=== PATIENT | male | born 1950 | race Hispanic/Latino ===

== ENCOUNTER 2016-11-14 11:24 | Inpatient (IN) | payer OTHER, MEDICARE ==
[2016-11-14 12:42] LABS: Anion Gap 17 mmol/L; Blood Urea Nitrogen 9 mg/dL (9-20); Calcium 9.3 mg/dL (8.4-10.2); Carbon Dioxide 28 mmol/L (22-30); Chloride 92.5 mmol/L (98-107); Glucose 99 mg/dL (75-100); Potassium 4.5 mmol/L (3.6-5.0); Sodium 133 mmol/L (137-145)
[2016-11-14 12:43] LABS: Eosinophils % (Auto) 7.5 % (0.0-4.3); Hematocrit 35.7 % (35.5-45.6); Mean Corpuscular HGB Conc 34 % (32-34); Mean Corpuscular Hemoglobin 34 pg (28-32); Mean Corpuscular Volume 101 fl (84-94); Platelet Count 111 K/mm3 (140-440); Red Blood Count 3.54 M/mm3 (3.65-5.03); White Blood Count 5.5 K/mm3 (4.5-11.0)
--- NOTE | 2016-11-14 12:46 | XRay Report ---
CHEST 2 VIEWS INDICATION: Shortness of breath. COMPARISON: 02/27/2013 FINDINGS: PA and lateral chest radiographs, 3 images, again demonstrate normal cardiomediastinal silhouette. Aortic knob calcifications. Clear, hyperexpanded lungs/COPD. No pleural effusions or CHF. Osteopenic bones. CONCLUSION: COPD without acute chest process, as described. Thank you for the opportunity to participate in this patient's care.
--- NOTE | 2016-11-14 20:33 | Emergency Department Report ---
HPI - General Chief Complaint: Dyspnea/Respdistress Time Seen by Provider: 11/14/16 20:22 - HPI HPI: Room 3 The patient is a 66-year-old male presenting with a chief complaint of shortness of breath. Patient states his symptoms began this morning at approximately 10:30 while at rest. Patient states someone came short of breath. Patient denies chest pain but admits to pain in the left axilla and back. The patient admits to chronic cough which has not changed recently patient denies any history of fever. Patient states currently as he is being administered O2 by nasal cannula his breathing feels okay. Location: Lungs Duration: [see above] Quality: Shortness of breath, soreness Severity: Moderate Modifying factors: [see above] Context: [see above] Mode of transportation: [not driving] ED Past Medical Hx - Past Medical History Hx Hypertension: Yes Hx Liver Disease: Yes (HEPATITIS C) Hx Psychiatric Treatment: Yes (ANXIETY) Hx Asthma: Yes Hx COPD: Yes Additional medical history: TREMORS - Surgical History Additional Surgical History: HERNIA REPAIR. COLON SURGERY - Family History Family history: no significant - Social History Smoking Status: Former Smoker (none 5 years) Substance Use Type: Alcohol ED Review of Systems ROS: Stated complaint: SOB Other details as noted in HPI Comment: All other systems reviewed and negative Constitutional: denies: chills, fever Eyes: denies: eye pain, eye discharge, vision change ENT: denies: ear pain, throat pain Respiratory: cough, shortness of breath Cardiovascular: denies: chest pain, palpitations Endocrine: no symptoms reported Gastrointestinal: denies: abdominal pain, nausea, diarrhea Genitourinary: denies: urgency, dysuria Musculoskeletal: denies: back pain, joint swelling, arthralgia Skin: denies: rash, lesions Neurological: denies: headache, weakness, paresthesias Psychiatric: denies: anxiety, depression Hematological/Lymphatic: denies: easy bleeding, easy bruising Physical Exam - Physical Exam Vital Signs: Vital Signs 11/14/16 11:32 Temperature 97.6 F Pulse Rate 73 Respiratory 22 Rate Blood Pressure 135/92 O2 Sat by Pulse 95 Oximetry Physical Exam: GENERAL: The patient is well-developed well-nourished male sitting on stretcher not appearing to be in acute distress. Nasal Cannula in place HEENT: Normocephalic. Atraumatic. Extraocular motions are intact. Patient has moist mucous membranes. NECK: Supple. Trachea midline CHEST/LUNGS: No wheezing auscultated. Breath sounds slightly diminished. There is no respiratory distress noted. HEART/CARDIOVASCULAR: Regular. There is no tachycardia. There is no gallop rub or murmur. ABDOMEN: Abdomen is soft, nontender. Patient has normal bowel sounds. There is no abdominal distention. SKIN: There is no edema. There is no diaphoresis. NEURO: The patient is awake, alert, and oriented. The patient is cooperative. The patient has normal speech MUSCULOSKELETAL: There is no evidence of acute injury. ED Course Vital Signs 11/14/16 11:32 Temperature 97.6 F Pulse Rate 73 Respiratory 22 Rate Blood Pressure 135/92 O2 Sat by Pulse 95 Oximetry ED Medical Decision Making - Lab Data Result diagrams: 11/14/16 12:12 11/14/16 12:12 Laboratory Tests 11/14/16 11/14/16 12:12 12:12 WBC 5.5 RBC 3.54 L Hgb 12.0 Hct 35.7 MCV 101 H MCH 34 H MCHC 34 RDW 14.0 Plt Count 111 L Lymph % (Auto) 17.5 [place] % (Auto) 15.5 H Eos % (Auto) 7.5 H Baso % (Auto) 1.0 Lymph # 1.0 L [place] # 0.9 H Eos # 0.4 Baso # 0.1 Seg Neutrophils % 58.5 Seg Neutrophils # 3.2 Sodium 133 L Potassium 4.5 Chloride 92.5 L Carbon Dioxide 28 Anion Gap 17 BUN 9 Creatinine 0.6 L Estimated GFR > 60 BUN/Creatinine Ratio 15.00 Glucose 99 Calcium 9.3 Troponin T < 0.010 - EKG Data -: EKG Interpreted by Me EKG shows normal: sinus rhythm Rate: normal - EKG Data When compared to previous EKG there are: no significant change Interpretation: unchanged when compared t (03/15/2011) - Radiology Data Radiology results: report reviewed (CT chest), image reviewed (chest x-ray, CT chest) interpreted by me: Chest x-ray-no focal infiltrates, no pneumothorax. Consistent with COPD CT chest (read by radiologist)-pulmonary emphysematous changes. No evidence for acute ulnar embolus - Differential Diagnosis COPD exacerbation, pneumonia, pneumothorax, PE, ACS Critical care attestation.: If time is entered above; I have spent that time in minutes in the direct care of this critically ill patient, excluding procedure time. ED Disposition Clinical Impression: Shortness of breath, Hypoxia, COPD (chronic obstructive pulmonary disease) Disposition: OP ADMITTED IP TO THIS HOSP Is pt being admited?: Yes Does the pt Need Aspirin: Yes Condition: Fair Instructions: Chronic Obstructive Pulmonary Disease (ED) Referrals: PRIMARY CARE, [Primary Care Provider] - 3-5 Days Time of Disposition: 23:14 (hospitalist paged)
[2016-11-14] MEDS ORDERED: NACL ONE (20:52)
--- NOTE | 2016-11-14 21:37 | Cat Scan Report ---
FINAL REPORT EXAM: CT ANGIO CHEST HISTORY: shortness of breath, left axillary pain TECHNIQUE: CT chest CT angiogram with reconstructions PRIORS: None. FINDINGS: There is no evidence of filling defect within the central pulmonary vasculature to suggest the presence of acute pulmonary embolus. No evidence of mediastinal pathologic lymph node enlargement Heart and great vessels are unremarkable. The aorta is normal in caliber Bilateral pulmonary centrilobular emphysematous changes are present There is focal area of rounded atelectasis noted within the right lower lobe. No pleural effusion identified.. Visualized portion of the upper abdomen demonstrates no acute change. IMPRESSION: Pulmonary emphysematous changes No evidence for acute pulmonary embolus.
[2016-11-14] MEDS ORDERED: PROVENTIL IH ONE (21:50)
[2016-11-14] MEDS ORDERED: ATROVENT IH ONE (21:50)
[2016-11-14 22:40] LABS: ISTAT Base Excess 3; ISTAT HCO3 25.6; ISTAT PCO2 28.4 (35-45); ISTAT PH 7.563 (7.35-7.45); ISTAT PO2 42 (80-105); ISTAT SITE 1; ISTAT SO2 85; ISTAT TCO2 26
[2016-11-14] MEDS ORDERED: ZOFRAN IV PRN (23:50)
[2016-11-14] MEDS ORDERED: TYLENOL PO PRN (23:50)
[2016-11-14] MEDS ORDERED: DULCOLAX PR PRN (23:50)
[2016-11-14] MEDS ORDERED: MILK OF MAGNESIA PO PRN (23:50)
--- NOTE | 2016-11-14 23:53 | History and Physical Report ---
History of Present Illness Date of examination: 11/14/16 History of present illness: 66-year-old man with a history of hypertension, COPD, anxiety, hepatitis C comes emergency room with complaints of shortness of breath started this morning. He has a cough productive of clear phlegm, no fever or chills. He has been using his nebulizer treatment without any improvement in his symptoms. Also complaining of pain on the left upper side in the thoracic area. He stated feels like a muscle strain, he has been doing heavy lifting over the last few days. It's a dull pain, intermittent in nature lasting for 5 minutes, intensity 4/10, no radiation, worse with movement Patient denies chest pain, palpitation, shortness of breath, cough, abdominal pain, hematochezia, dysuria, frequency, focal weakness, dysarthria, fever chills , polydipsia polyuria, hot or cold intolerance, easy bruisability, or rash or bleeding from mucosal membrane, rhinorrhea, epistaxis, earache, tinnitus, blurry vision, eye discharge, anxiety, depression. Other review of systems negative PAST SURGICAL HISTORY: Hernia repair, colon surgery SOCIAL HISTORY: Occasional alcohol, no tobacco or drugs FAMILY HISTORY: Hypertension Medications and Allergies Allergies Allergy/AdvReac Type Severity Reaction Status Date / Time Penicillins AdvReac Hives Verified 11/14/16 11:42 Home Medications Medication Instructions Recorded Confirmed Last Taken Type ALBUTEROL Inhaler [Proair] 2 puff IH QID PRN 11/15/16 11/15/16 Unknown History Cetirizine HCl 10 mg PO DAILY 11/15/16 11/15/16 Unknown History Paroxetine HCl [PARoxetine] 20 mg PO QDAY 11/15/16 11/15/16 Unknown History Propranolol HCl 20 mg PO BID 11/15/16 11/15/16 Unknown History Simethicone [Gas-X] 1 PO 4XD 11/15/16 Unknown History Symbicort 160-4.5 (Nf) INHALATION 11/15/16 Unknown History Tiotropium [place] [Spiriva 4 gm IH 11/15/16 Unknown History Respimat] guaiFENesin [Tab Tussin] 400 mg PO Q8HR PRN 11/15/16 11/15/16 Unknown History Exam - Physical Exam Narrative exam: Gen. appearance: Patient lying in bed, no apparent distress HEENT: Normocephalic, atraumatic, pupils equally round and reactive to light, extraocular movement intact, and no sclericterus,. No JVD or thyromegaly or nodule,neck supple, no carotid bruit ,mucous membranes moist, no exudate or erythema Heart: S1, S2, regular rate and rhythm Lungs: Decreased air entry, wheezing bilaterally, breathing comfortable Abdomen: Positive bowel sounds, nontender, nondistended, no organomegaly Extremity: No edema, cyanosis, clubbing Skin: No rash, nodules, warm, dry Neuro: Oriented 3, cranial nerves II-12 intact, speech is fluent, motor and sensory intact - Constitutional Vitals: Temp Pulse Resp BP Pulse Ox 98.2 F 78 19 153/72 98 11/14/16 20:30 11/14/16 20:30 11/14/16 20:30 11/14/16 20:30 11/14/16 21:32 Results - Labs CBC & Chem 7: 11/16/16 05:15 11/16/16 05:15 Labs: Abnormal lab results 11/14/16 11/14/16 11/14/16 Range/Units 12:12 12:12 22:37 RBC 3.54 L (3.65-5.03) M/mm3 MCV 101 H (84-94) fl MCH 34 H (28-32) pg Plt Count 111 L (140-440) K/mm3 [place] % (Auto) 15.5 H (0.0-7.3) % Eos % (Auto) 7.5 H (0.0-4.3) % Lymph # 1.0 L (1.2-5.4) K/mm3 [place] # 0.9 H (0.0-0.8) K/mm3 POC ABG pH 7.563 H (7.35-7.45) POC ABG pCO2 28.4 L (35-45) POC ABG pO2 42 L (80-105) Sodium 133 L (137-145) mmol/L Chloride 92.5 L (98-107) mmol/L Creatinine 0.6 L (0.8-1.5) mg/dL - Imaging and Cardiology EKG: image reviewed Chest x-ray: image reviewed Assessment and Plan COPD exacerbation Hypertension Hep C Anxiety Thrombocytopenia Admits medicine Start high-dose IV steroids, nebulizer treatments Continue appropriate outpatient medication, DVT prophylaxis with SCD Check cardiac enzymes
[2016-11-15 00:45] LABS: Creatine Kinase MB 3.2 ng/mL (0.0-4.0)
[2016-11-15 06:00] LABS: Basophils % (Auto) 0.3 % (0.0-1.8); Eosinophils % (Auto) 0.4 % (0.0-4.3); Hematocrit 34.8 % (35.5-45.6); Hemoglobin 11.7 gm/dl (11.8-15.2); Mean Corpuscular HGB Conc 34 % (32-34); Mean Corpuscular Hemoglobin 34 pg (28-32); Mean Corpuscular Volume 100 fl (84-94); Red Blood Count 3.48 M/mm3 (3.65-5.03); Red Cell Distribution Width 13.9 % (13.2-15.2); White Blood Count 2.9 K/mm3 (4.5-11.0)
[2016-11-15 06:05] LABS: Platelet Count 89 K/mm3 (140-440)
[2016-11-15 06:23] LABS: Anion Gap 19 mmol/L; BUN/Creatinine Ratio 12.85; Blood Urea Nitrogen 9 mg/dL (9-20); Calcium 9.2 mg/dL (8.4-10.2); Carbon Dioxide 26 mmol/L (22-30); Chloride 93.9 mmol/L (98-107); Glucose 154 mg/dL (75-100); Potassium 4.2 mmol/L (3.6-5.0); Sodium 135 mmol/L (137-145)
[2016-11-15 06:25] LABS: Creatine Kinase MB 3.4 ng/mL (0.0-4.0)
--- NOTE | 2016-11-15 07:15 | Admit Criteria Form ---
Admission Criteria Documentation: COPD Clinical Indications for Admission to Inpatient Care (Place 'X' for any and all applicable criteria): Admission is indicated for ANY ONE of the following (1)(2)(3): [ ]I. Acute exacerbation by high-risk comorbidity (e.g., pneumonia, dysrhythmia, heart failure, pleural effusion, pneumothorax) or severe underlying COPD (e.g., steroid dependent) [ X]II. Inpatient admission required rather than observation care (see Chronic Obstructive Pulmonary Disease: Observation Care) because of ANY ONE of the following: [X]a) New or pre-existing signs or symptoms of COPD (eg, dyspnea or Tachypnea at rest or with minimal activity) that persist despite outpatient and observation care treatment [ ]b) New-onset hypoxemia (room air SaO2 less than 90%, PO2 less than 60 mm Hg (8.0 kPa)) that persists despite outpatient and observation care treatment [ ]c) Worsening of pre-existing hypoxemia (eg, new or increased requirement for supplemental oxygen to maintain oxygenation at baseline level) that persists despite outpatient and observation care treatment, with oxygen treatment needs performable only in acute inpatient setting [ ]d) Hypercarbia (PCO2 greater than 40 mm Hg (5.3 kPa))-induced respiratory acidosis (pH less than 7.35) that persists despite outpatient and observation care treatment [ ]e) Supplemental oxygen or respiratory treatments for over 24 hours that are performable only in acute inpatient setting [ ]f) Chest tube placement with active evacuation (e.g., suction, drainage) (5) [ ]g) Other condition, treatment or monitoring requiring inpatient admission [ ]III. Planned invasive surgical or diagnostic procedures requiring acute- care hospitalization [ ]IV. Acute respiratory failure (e.g., uncompensated hypercarbia, severe hypoxemia) [ ]V. Severe comorbid condition (e.g., severe steroid myopathy, acute vertebral fracture) that has acutely worsened pulmonary function [ ]. Confusion state, lethargy, obtundation, stupor or coma Extended stay beyond goal length of stay may be needed for (31)(32): [ ]a ) Respiratory Failure. [ ]b) Severe or persisting hypoxemia or hypercarbia [ ]c) Severe or persistent dyspnea [ ]d) Comorbidities (e.g. chronic heart failure, atrial fibrillation with rapid response, pneumonia) [ ]e) Malnutrition The original [facility] content created by [employer] includes the [facility] has been revised. The portions of the content which have been revised are identified through the use of italic text or in bold, and [employer] includes the [facility] has neither reviewed nor approved the modified material. All other unmodified content is copyright [facility]. Please see references footnoted in the original [facility] edition 2016 Admission Criteria Met: Yes
[2016-11-15] MEDS: DUONEB 0.5 MG-3 MG/3 ML SOLN IH SCH ×4 (07:27→20:32)
[2016-11-15] MEDS ORDERED: LOVENOX SUB-Q SCH (10:00)
[2016-11-15] MEDS: PULMICORT IH SCH ×2 (10:54→20:14)
[2016-11-15] MEDS: BROVANA NEBU IH SCH ×2 (10:54→20:14)
[2016-11-15] MEDS: ZITHROMAX PO SCH (15:14)
--- NOTE | 2016-11-15 19:20 | Progress Note ---
History Interval history: c/o SOB Hospitalist Physical - Constitutional Vitals: Temp Pulse Resp BP Pulse Ox 98 F 78 18 142/63 99 11/15/16 15:35 11/15/16 15:35 11/15/16 15:35 11/15/16 15:35 11/15/16 07:32 Results - Labs CBC & Chem 7: 11/15/16 05:38 11/15/16 05:38 Labs: Laboratory Last Values WBC 2.9 K/mm3 (4.5-11.0) L 11/15/16 05:38 RBC 3.48 M/mm3 (3.65-5.03) L 11/15/16 05:38 Hgb 11.7 gm/dl (11.8-15.2) L 11/15/16 05:38 Hct 34.8 % (35.5-45.6) L 11/15/16 05:38 MCV 100 fl (84-94) H 11/15/16 05:38 MCH 34 pg (28-32) H 11/15/16 05:38 MCHC 34 % (32-34) 11/15/16 05:38 RDW 13.9 % (13.2-15.2) 11/15/16 05:38 Plt Count 89 K/mm3 (140-440) L 11/15/16 05:38 Lymph % (Auto) 11.5 % (13.4-35.0) L 11/15/16 05:38 [place] % (Auto) 2.5 % (0.0-7.3) 11/15/16 05:38 Eos % (Auto) 0.4 % (0.0-4.3) 11/15/16 05:38 Baso % (Auto) 0.3 % (0.0-1.8) 11/15/16 05:38 Lymph # 0.3 K/mm3 (1.2-5.4) L 11/15/16 05:38 [place] # 0.1 K/mm3 (0.0-0.8) 11/15/16 05:38 Eos # 0.0 K/mm3 (0.0-0.4) 11/15/16 05:38 Baso # 0.0 K/mm3 (0.0-0.1) 11/15/16 05:38 Seg Neutrophils % 85.3 % (40.0-70.0) H 11/15/16 05:38 Seg Neutrophils # 2.5 K/mm3 (1.8-7.7) 11/15/16 05:38 POC ABG pH 7.563 (7.35-7.45) H 11/14/16 22:37 POC ABG pCO2 28.4 (35-45) L 11/14/16 22:37 POC ABG pO2 42 (80-105) L 11/14/16 22:37 POC ABG HCO3 25.6 11/14/16 22:37 POC ABG Total CO2 26 11/14/16 22:37 POC ABG O2 Sat 85 11/14/16 22:37 POC ABG Base Excess 3 11/14/16 22:37 FiO2 21 % 11/14/16 22:37 Sodium 135 mmol/L (137-145) L 11/15/16 05:38 Potassium 4.2 mmol/L (3.6-5.0) 11/15/16 05:38 Chloride 93.9 mmol/L (98-107) L 11/15/16 05:38 Carbon Dioxide 26 mmol/L (22-30) 11/15/16 05:38 Anion Gap 19 mmol/L 11/15/16 05:38 BUN 9 mg/dL (9-20) 11/15/16 05:38 Creatinine 0.7 mg/dL (0.8-1.5) L 11/15/16 05:38 Estimated GFR > 60 ml/min 11/15/16 05:38 BUN/Creatinine Ratio 12.85 % 11/15/16 05:38 Glucose 154 mg/dL (75-100) H 11/15/16 05:38 Calcium 9.2 mg/dL (8.4-10.2) 11/15/16 05:38 Total Creatine Kinase 73 units/L (55-170) 11/15/16 05:38 CK-MB (CK-2) 3.4 ng/mL (0.0-4.0) 11/15/16 05:38 CK-MB (CK-2) Rel Index 4.6 (0-4) H 11/15/16 05:38 Troponin T < 0.010 ng/mL (0.00-0.029) 11/15/16 05:38
[2016-11-15] MEDS: PERCOCET 5/325 PO PRN (23:25)
[2016-11-16] MEDS: DUONEB 0.5 MG-3 MG/3 ML SOLN IH SCH ×4 (01:39→19:24)
[2016-11-16 05:30] LABS: Hematocrit 35.6 % (35.5-45.6); Hemoglobin 11.9 gm/dl (11.8-15.2); Mean Corpuscular HGB Conc 34 % (32-34); Mean Corpuscular Hemoglobin 34 pg (28-32); Mean Corpuscular Volume 101 fl (84-94); Platelet Count 102 K/mm3 (140-440); Red Blood Count 3.53 M/mm3 (3.65-5.03); Red Cell Distribution Width 14.1 % (13.2-15.2); White Blood Count 8.8 K/mm3 (4.5-11.0)
[2016-11-16 05:51] LABS: Alanine Aminotransferase 40 units/L (7-56); Albumin 3.2 g/dL (3.9-5); Albumin/Globulin Ratio 0.9 %; Alkaline Phosphatase 113 units/L (35-129); Anion Gap 14 mmol/L; BUN/Creatinine Ratio 21.42; Bilirubin,Total 0.8 mg/dL (0.1-1.2); Blood Urea Nitrogen 15 mg/dL (9-20); Calcium 8.8 mg/dL (8.4-10.2); Carbon Dioxide 27 mmol/L (22-30); Glucose 163 mg/dL (75-100); Potassium 4.3 mmol/L (3.6-5.0); Sodium 133 mmol/L (137-145); Total Protein 6.8 g/dL (6.3-8.2)
[2016-11-16 06:04] LABS: INR 1.34 (0.87-1.13)
[2016-11-16 07:05] LABS: Basophils % (Manual) 0 % (0.0-1.8); Blastocytes % (Manual) 0 %; Eosinophils % (Manual) 0 % (0.0-4.3)
[2016-11-16 07:06] LABS: Anisocytosis 1+; Ovalocytes Few; Target Cells Rare
[2016-11-16 07:17] LABS: Diff Status Complete; Platelet Estimate Consistent w Auto
[2016-11-16] MEDS: BROVANA NEBU IH SCH ×2 (08:30→19:24)
[2016-11-16] MEDS: PULMICORT IH SCH ×2 (08:30→19:25)
[2016-11-16] MEDS: ZITHROMAX PO SCH (09:35)
--- NOTE | 2016-11-16 09:56 | Query- Dyspnea ---
C[place] Date:_11/16/16 Creative Perfumer/CDS:Mariano Lucero Phone#:_[phone] Exercise your independent professional judgment when responding to query. Questions asked do not imply a particular answer is desired or expected. We greatly appreciate your clarification on this issue. Clinical Documentation States: 66-year-old man with a history of hypertension, COPD, anxiety, hepatitis C comes emergency room with complaints of shortness of breath started this morning. He has a cough productive of clear phlegm, no fever or chills. He has been using his nebulizer treatment without any improvement in his symptoms. Clinical Findings Show: ABG: PH:7.563, PaO2:42, PaCO2:28.4, SaO2:85 RR:22 Accessory muscle use Please clarify if the patient had any of the following conditions based on the above clinical findings: [x ] Respiratory Failure [x ] Acute [ ] Acute on Chronic [ ] Chronic [ ] Respiratory failure due to trauma [ ] Acute Respiratory Distress Syndrome [ ] Other: [ ] Unable to determine [ ] Comment/Explanation: Present on Admission: [x ] Yes (Y) [ ] Clinically undeterminable (W) [ ] No (N) Please also document response in your Progress Notes and/or Discharge Summary and indicate if the condition was present on admission. SAHARA
--- NOTE | 2016-11-16 20:15 | Progress Note ---
Assessment and Plan Assessment and plan: 1. COPD exacerbation 2. HTN 3. Hepatitis C 4. Thrombocytopenia 5. Hyperglycemia 6. Hyponatremia History Interval history: SOB improved, but still requiring O2 continuous Hospitalist Physical - Constitutional Vitals: Temp Pulse Resp BP Pulse Ox 98.1 F 84 18 125/73 98 11/16/16 16:30 11/16/16 19:26 11/16/16 19:26 11/16/16 16:30 11/16/16 19:26 Results - Labs CBC & Chem 7: 11/16/16 05:15 11/16/16 05:15 Labs: Laboratory Last Values WBC 8.8 K/mm3 (4.5-11.0) 11/16/16 05:15 RBC 3.53 M/mm3 (3.65-5.03) L 11/16/16 05:15 Hgb 11.9 gm/dl (11.8-15.2) 11/16/16 05:15 Hct 35.6 % (35.5-45.6) 11/16/16 05:15 MCV 101 fl (84-94) H 11/16/16 05:15 MCH 34 pg (28-32) H 11/16/16 05:15 MCHC 34 % (32-34) 11/16/16 05:15 RDW 14.1 % (13.2-15.2) 11/16/16 05:15 Plt Count 102 K/mm3 (140-440) L 11/16/16 05:15 Lymph % (Auto) 11.5 % (13.4-35.0) L 11/15/16 05:38 [place] % (Auto) 2.5 % (0.0-7.3) 11/15/16 05:38 Eos % (Auto) 0.4 % (0.0-4.3) 11/15/16 05:38 Baso % (Auto) 0.3 % (0.0-1.8) 11/15/16 05:38 Lymph # 0.3 K/mm3 (1.2-5.4) L 11/15/16 05:38 [place] # 0.1 K/mm3 (0.0-0.8) 11/15/16 05:38 Eos # 0.0 K/mm3 (0.0-0.4) 11/15/16 05:38 Baso # 0.0 K/mm3 (0.0-0.1) 11/15/16 05:38 Add Manual Diff Complete 11/16/16 05:15 Total Counted 100 11/16/16 05:15 Seg Neutrophils % Neonatal Surgeon 11/16/16 05:15 Seg Neuts % (Manual) 87.0 % (40.0-70.0) H 11/16/16 05:15 Band Neutrophils % 5.0 % 11/16/16 05:15 Lymphocytes % (Manual) 7.0 % (13.4-35.0) L 11/16/16 05:15 Reactive Lymphs % (Man) 0 % 11/16/16 05:15 Monocytes % (Manual) 1.0 % (0.0-7.3) 11/16/16 05:15 Eosinophils % (Manual) 0 % (0.0-4.3) 11/16/16 05:15 Basophils % (Manual) 0 % (0.0-1.8) 11/16/16 05:15 Metamyelocytes % 0 % 11/16/16 05:15 Myelocytes % 0 % 11/16/16 05:15 Promyelocytes % 0 % 11/16/16 05:15 Blast Cells % 0 % 11/16/16 05:15 Nucleated RBC % Not Reportable 11/16/16 05:15 Seg Neutrophils # 2.5 K/mm3 (1.8-7.7) 11/15/16 05:38 Seg Neutrophils # Man 7.7 K/mm3 (1.8-7.7) 11/16/16 05:15 Band Neutrophils # 0.4 K/mm3 11/16/16 05:15 Lymphocytes # (Manual) 0.6 K/mm3 (1.2-5.4) L 11/16/16 05:15 Abs React Lymphs (Man) 0.0 K/mm3 11/16/16 05:15 Monocytes # (Manual) 0.1 K/mm3 (0.0-0.8) 11/16/16 05:15 Eosinophils # (Manual) 0.0 K/mm3 (0.0-0.4) 11/16/16 05:15 Basophils # (Manual) 0.0 K/mm3 (0.0-0.1) 11/16/16 05:15 Metamyelocytes # 0.0 K/mm3 11/16/16 05:15 Myelocytes # 0.0 K/mm3 11/16/16 05:15 Promyelocytes # 0.0 K/mm3 11/16/16 05:15 Blast Cells # 0.0 K/mm3 11/16/16 05:15 WBC Morphology Not Reportable 11/16/16 05:15 Hypersegmented Neuts Not Reportable 11/16/16 05:15 Hyposegmented Neuts Not Reportable 11/16/16 05:15 Hypogranular Neuts Not Reportable 11/16/16 05:15 Smudge Cells Not Reportable 11/16/16 05:15 Toxic Granulation Not Reportable 11/16/16 05:15 Toxic Vacuolation Not Reportable 11/16/16 05:15 Dohle Bodies Not Reportable 11/16/16 05:15 Pel[place]-Huet Anomaly Not Reportable 11/16/16 05:15 Alysa Rods Not Reportable 11/16/16 05:15 Platelet Estimate Consistent w auto 11/16/16 05:15 Clumped Platelets Not Reportable 11/16/16 05:15 Plt Clumps, EDTA Not Reportable 11/16/16 05:15 Large Platelets Not Reportable 11/16/16 05:15 Giant Platelets Not Reportable 11/16/16 05:15 Platelet Satelliting Not Reportable 11/16/16 05:15 Plt Morphology Comment Not Reportable 11/16/16 05:15 RBC Morphology Not Reportable 11/16/16 05:15 Dimorphic RBCs Not Reportable 11/16/16 05:15 Polychromasia Not Reportable 11/16/16 05:15 Hypochromasia Not Reportable 11/16/16 05:15 Poikilocytosis Not Reportable 11/16/16 05:15 Anisocytosis 1+ 11/16/16 05:15 Microcytosis Not Reportable 11/16/16 05:15 Macrocytosis Not Reportable 11/16/16 05:15 Spherocytes Not Reportable 11/16/16 05:15 Pappenheimer Bodies Not Reportable 11/16/16 05:15 Sickle Cells Not Reportable 11/16/16 05:15 Target Cells Rare 11/16/16 05:15 Tear Drop Cells Not Reportable 11/16/16 05:15 Ovalocytes Few 11/16/16 05:15 Helmet Cells Not Reportable 11/16/16 05:15 [place] Bodies Not Reportable 11/16/16 05:15 [place] Rings Not Reportable 11/16/16 05:15 [place] Cells Not Reportable 11/16/16 05:15 Bite Cells Not Reportable 11/16/16 05:15 Crenated Cell Not Reportable 11/16/16 05:15 Elliptocytes Not Reportable 11/16/16 05:15 Acanthocytes (Spur) Not Reportable 11/16/16 05:15 Rouleaux Not Reportable 11/16/16 05:15 Hemoglobin C Crystals Not Reportable 11/16/16 05:15 Schistocytes Not Reportable 11/16/16 05:15 Malaria parasites Not Reportable 11/16/16 05:15 Reji Bodies Not Reportable 11/16/16 05:15 Hem Pathologist Commnt No 11/16/16 05:15 PT 16.5 Sec. (12.2-14.9) H 11/16/16 05:15 INR 1.34 (0.87-1.13) H 11/16/16 05:15 POC ABG pH 7.563 (7.35-7.45) H 11/14/16 22:37 POC ABG pCO2 28.4 (35-45) L 11/14/16 22:37 POC ABG pO2 42 (80-105) L 11/14/16 22:37 POC ABG HCO3 25.6 11/14/16 22:37 POC ABG Total CO2 26 11/14/16 22:37 POC ABG O2 Sat 85 11/14/16 22:37 POC ABG Base Excess 3 11/14/16 22:37 FiO2 21 % 11/14/16 22:37 Sodium 133 mmol/L (137-145) L 11/16/16 05:15 Potassium 4.3 mmol/L (3.6-5.0) 11/16/16 05:15 Chloride 96.0 mmol/L (98-107) L 11/16/16 05:15 Carbon Dioxide 27 mmol/L (22-30) 11/16/16 05:15 Anion Gap 14 mmol/L 11/16/16 05:15 BUN 15 mg/dL (9-20) 11/16/16 05:15 Creatinine 0.7 mg/dL (0.8-1.5) L 11/16/16 05:15 Estimated GFR > 60 ml/min 11/16/16 05:15 BUN/Creatinine Ratio 21.42 % 11/16/16 05:15 Glucose 163 mg/dL (75-100) H 11/16/16 05:15 Calcium 8.8 mg/dL (8.4-10.2) 11/16/16 05:15 Total Bilirubin 0.8 mg/dL (0.1-1.2) 11/16/16 05:15 AST 52 units/L (5-40) H 11/16/16 05:15 ALT 40 units/L (7-56) 11/16/16 05:15 Alkaline Phosphatase 113 units/L (35-129) 11/16/16 05:15 Total Creatine Kinase 73 units/L (55-170) 11/15/16 05:38 CK-MB (CK-2) 3.4 ng/mL (0.0-4.0) 11/15/16 05:38 CK-MB (CK-2) Rel Index 4.6 (0-4) H 11/15/16 05:38 Troponin T < 0.010 ng/mL (0.00-0.029) 11/15/16 05:38 Total Protein 6.8 g/dL (6.3-8.2) 11/16/16 05:15 Albumin 3.2 g/dL (3.9-5) L 11/16/16 05:15 Albumin/Globulin Ratio 0.9 % 11/16/16 05:15
[2016-11-17] MEDS: PERCOCET 5/325 PO PRN (00:05)
[2016-11-17] MEDS: BROVANA NEBU IH SCH (08:01)
[2016-11-17] MEDS: PULMICORT IH SCH (08:01)
[2016-11-17] MEDS: DUONEB 0.5 MG-3 MG/3 ML SOLN IH SCH ×2 (08:02→14:34)
[2016-11-17] MEDS: ZITHROMAX PO SCH (09:26)
[2016-11-17] MEDS ORDERED: DELTASONE PO SCH (10:00)
--- NOTE | 2016-11-17 13:44 | Discharge Summary ---
Providers - Providers Date of Admission: 11/14/16 23:50 Date of discharge: 11/17/16 Attending physician: MAYURI MELGAR Primary care physician: PAYROLL LEAD Hospitalization Reason for admission: SOB Condition: Stable Disposition: DISCHARGED TO HOME OR SELFCARE Time spent for discharge: 35 min Core Measure Documentation - Palliative Care Palliative Care/ Comfort Measures: Not Applicable - Core Measures Any of the following diagnoses?: none Exam - Constitutional Vitals: Temp Pulse Resp BP Pulse Ox 97.9 F 87 18 141/67 97 11/17/16 08:00 11/17/16 08:17 11/17/16 08:17 11/17/16 08:00 11/17/16 10:00 Plan Activity: advance as tolerated Diet: low cholesterol, low salt Follow up with: PRIMARY CARE,MD [Primary Care Provider] - 3-5 Days Prescriptions: ALBUTEROL Inhaler [ProAir HFA Inhaler] 2 puff IH QID PRN #1 inha PRN Reason: Shortness Of Breath Azithromycin [Zithromax TAB] 500 mg PO QDAY #2 tablet oxyCODONE /ACETAMINOPHEN [Percocet 5/325 mg] 1 tab PO Q6H PRN #12 tablet PRN Reason: Pain, Moderate (4-6) predniSONE [Deltasone] 40 mg PO QDAY #10 tablet Symbicort 160-4.5 (Nf) 1 inhalation INHALATION 2XWHS #1 Tiotropium [place] [Spiriva Respimat] 4 gm IH DAILY #1 mist.inhal
[2016-11-17 15:39] VITALS: BP 157/79
== END 2016-11-17 16:37 | disposition home or self-care (01) | DRG 189 ==
LOC: ED 11:24 → 3A 23:50
PROVIDERS: ADMIT Internal Medicine; ATTEND Internal Medicine
PROC: 4A033R1 Measurement of Arterial Saturation, Peripheral, Percutaneous Approach (ICD-10-PCS; principal; 2016-11-14)
DX: J96.00 Acute respiratory failure, unspecified whether with hypoxia or hypercapnia (principal); J44.1 Chronic obstructive pulmonary disease with (acute) exacerbation; E87.1 Hypo-osmolality and hyponatremia; J45.909 Unspecified asthma, uncomplicated; I10 Essential (primary) hypertension; B19.20 Unspecified viral hepatitis C without hepatic coma; F41.9 Anxiety disorder, unspecified; R73.9 Hyperglycemia, unspecified; D69.6 Thrombocytopenia, unspecified; Z98.890 Other specified postprocedural states; Z88.0 Allergy status to penicillin; Z79.899 Other long term (current) drug therapy; Z82.49 Family history of ischemic heart disease and other diseases of the circulatory system
CPT/HCPCS: 36415; 71020; 71275; 80048; 80053; 82550; 82553; 82803; 84484; 85007; 85025; 85610; 93005; 93010; 94640; 94760; J2920; J2930; J7512; Q9967

== ENCOUNTER 2016-12-01 16:34 | Emergency (ER) | payer OTHER, MEDICARE ==
[2016-12-01 18:52] LABS: Anion Gap 18 mmol/L; BUN/Creatinine Ratio 16.66; Blood Urea Nitrogen 10 mg/dL (9-20); Carbon Dioxide 26 mmol/L (22-30); Chloride 95.9 mmol/L (98-107); Glucose 115 mg/dL (75-100); Sodium 136 mmol/L (137-145)
[2016-12-01 19:05] LABS: Basophils % (Auto) 1.6 % (0.0-1.8); Eosinophils % (Auto) 4.3 % (0.0-4.3); Hematocrit 36.4 % (35.5-45.6); Mean Corpuscular HGB Conc 33 % (32-34); Mean Corpuscular Hemoglobin 33 pg (28-32); Mean Corpuscular Volume 100 fl (84-94); Red Blood Count 3.64 M/mm3 (3.65-5.03); Red Cell Distribution Width 14.6 % (13.2-15.2); White Blood Count 5.6 K/mm3 (4.5-11.0)
[2016-12-01 19:19] LABS: Platelet Count 89 K/mm3 (140-440)
[2016-12-01] MEDS ORDERED: PROVENTIL IH ONE (22:44)
[2016-12-01] MEDS ORDERED: NACL 0.9% 1000 ML 1,000 ML IV ONE (22:44)
[2016-12-01] MEDS ORDERED: ATROVENT IH ONE (22:44)
--- NOTE | 2016-12-01 22:45 | Emergency Department Report ---
ED General Adult HPI - General Chief complaint: Dyspnea/Respdistress Stated complaint: SOB Time Seen by Provider: 12/01/16 22:37 Source: patient, RN notes reviewed, old records reviewed Mode of arrival: Ambulatory Limitations: No Limitations - History of Present Illness Initial comments: This is a 66-year-old male. He is previously unknown to me. Has a past medical history of hypertension, COPD, hepatitis C, anxiety. He is home oxygen dependent. The patient is recently admitted to this hospital for COPD exacerbation on the week of 11/14/2016. He was discharged with home oxygen. He reports that after being home for a few days, accompanied that supplied his home oxygen took his home oxygen machine away. He does not have home oxygen currently. He went to an outpatient [facility] yesterday, and was referred to the ER. The patient reports chronic shortness of breath and cough, decreased exercise tolerance, which is consistent with chronic COPD. His symptoms decreased with with rest, increase with physical exertion. He has no pain, he has chronic cough, chronic mucus production. His primary complaint is not having oxygen at home. -: Gradual Consistency: intermittent Improves with: rest Worsens with: movement Associated Symptoms: cough, shortness of breath - Related Data Home Medications Medication Instructions Recorded Confirmed Last Taken Cetirizine HCl 10 mg PO DAILY 11/15/16 11/15/16 Unknown Paroxetine HCl [PARoxetine] 20 mg PO QDAY 11/15/16 11/15/16 Unknown Propranolol HCl 20 mg PO BID 11/15/16 11/15/16 Unknown Simethicone [Gas-X] 1 PO 4XD 11/15/16 Unknown guaiFENesin [Tab Tussin] 400 mg PO Q8HR PRN 11/15/16 11/15/16 Unknown Previous Rx's Medication Instructions Recorded Last Taken Type ALBUTEROL Inhaler [ProAir HFA 2 puff IH QID PRN #1 inha 11/17/16 Unknown Rx Inhaler] Azithromycin [Zithromax TAB] 500 mg PO QDAY #2 tablet 11/17/16 Unknown Rx Symbicort 160-4.5 (Nf) 1 inhalation INHALATION 2XWHS #1 11/17/16 Unknown Rx Tiotropium [place] [Spiriva 4 gm IH DAILY #1 mist.inhal 11/17/16 Unknown Rx Respimat] oxyCODONE /ACETAMINOPHEN [Percocet 1 tab PO Q6H PRN #12 tablet 11/17/16 Unknown Rx 5/325 mg] predniSONE [Deltasone] 40 mg PO QDAY #10 tablet 11/17/16 Unknown Rx Allergies Allergy/AdvReac Type Severity Reaction Status Date / Time Penicillins AdvReac Hives Verified 12/01/16 17:11 ED Review of Systems ROS: Stated complaint: SOB Other details as noted in HPI Constitutional: denies: fever ENT: denies: epistaxis Respiratory: shortness of breath Cardiovascular: dyspnea on exertion Gastrointestinal: denies: abdominal pain Genitourinary: denies: urgency, dysuria Musculoskeletal: denies: back pain Skin: denies: lesions Neurological: denies: weakness Psychiatric: denies: anxiety ED Past Medical Hx - Past Medical History Previous Medical History?: Yes Hx Hypertension: Yes Hx Liver Disease: Yes (HEPATITIS C) Hx Arthritis: Yes Hx Psychiatric Treatment: Yes (ANXIETY) Hx Asthma: Yes Hx COPD: Yes Additional medical history: TREMORS. Emphysema - Surgical History Past Surgical History?: Yes Additional Surgical History: HERNIA REPAIR. COLON SURGERY - Social History Smoking Status: Former Smoker Substance Use Type: None - Medications Home Medications: Home Medications Medication Instructions Recorded Confirmed Last Taken Type Cetirizine HCl 10 mg PO DAILY 11/15/16 11/15/16 Unknown History Paroxetine HCl [PARoxetine] 20 mg PO QDAY 11/15/16 11/15/16 Unknown History Propranolol HCl 20 mg PO BID 11/15/16 11/15/16 Unknown History Simethicone [Gas-X] 1 PO 4XD 11/15/16 Unknown History guaiFENesin [Tab Tussin] 400 mg PO Q8HR PRN 11/15/16 11/15/16 Unknown History ALBUTEROL Inhaler [ProAir HFA 2 puff IH QID PRN #1 inha 11/17/16 Unknown Rx Inhaler] Azithromycin [Zithromax TAB] 500 mg PO QDAY #2 tablet 11/17/16 Unknown Rx Symbicort 160-4.5 (Nf) 1 inhalation INHALATION 2XWHS #1 11/17/16 Unknown Rx Tiotropium [place] [Spiriva 4 gm IH DAILY #1 mist.inhal 11/17/16 Unknown Rx Respimat] oxyCODONE /ACETAMINOPHEN [Percocet 1 tab PO Q6H PRN #12 tablet 11/17/16 Unknown Rx 5/325 mg] predniSONE [Deltasone] 40 mg PO QDAY #10 tablet 11/17/16 Unknown Rx ED Physical Exam - General Limitations: No Limitations General appearance: alert, in no apparent distress - Head Head exam: Present: atraumatic, normocephalic - Eye Eye exam: Present: normal appearance, EOMI. Absent: nystagmus - ENT ENT exam: Present: normal exam, normal orophraynx, mucous membranes moist, normal external ear exam - Neck Neck exam: Present: normal inspection, full ROM. Absent: tenderness, meningismus - Respiratory Respiratory exam: Present: decreased breath sounds. Absent: respiratory distress, wheezes, rales - Cardiovascular Cardiovascular Exam: Present: normal rhythm, tachycardia, normal heart sounds. Absent: systolic murmur, diastolic murmur, rubs, gallop - GI/Abdominal GI/Abdominal exam: Present: soft, normal bowel sounds. Absent: distended, tenderness, guarding, rebound, rigid - Rectal Rectal exam: Present: deferred - Extremities Exam Extremities exam: Present: normal inspection, full ROM, normal capillary refill. Absent: tenderness, pedal edema, joint swelling, calf tenderness - Back Exam Back exam: Present: normal inspection, full ROM. Absent: tenderness, CVA tenderness (R), CVA tenderness (L), muscle spasm, paraspinal tenderness, vertebral tenderness - Neurological Exam Neurological exam: Present: alert, oriented X3, other (Extraocular movements intact. Tongue midline. No facial droop. Facial sensation intact to light touch in the V1, V2, V3 distribution bilaterally. 5 and 5 strength in 4 extremities.. Sensation is intact to light touch in 4 extremities.). Absent: motor sensory deficit - Psychiatric Psychiatric exam: Present: normal affect, normal mood - Skin Skin exam: Present: warm, dry, intact, normal color. Absent: rash ED Course Vital Signs 12/01/16 12/01/16 12/01/16 17:05 22:39 22:45 Temperature 98.8 F Pulse Rate 103 H 108 H Pulse Rate [ Anterior Bilateral Throughout] Pulse Rate [ Anterior Right Throughout] Pulse Rate [ Anterior Right Upper Lobe] Respiratory 18 20 18 Rate Respiratory Rate [Anterior Bilateral Throughout] Respiratory Rate [Anterior Right Throughout] Respiratory Rate [Anterior Right Upper Lobe] Blood Pressure 147/87 Blood Pressure 135/78 [Left] O2 Sat by Pulse 96 97 97 Oximetry 12/01/16 12/01/16 12/01/16 23:01 23:05 23:46 Temperature Pulse Rate 107 H Pulse Rate [ 105 H Anterior Bilateral Throughout] Pulse Rate [ Anterior Right Throughout] Pulse Rate [ Anterior Right Upper Lobe] Respiratory 16 Rate Respiratory 20 Rate [Anterior Bilateral Throughout] Respiratory Rate [Anterior Right Throughout] Respiratory Rate [Anterior Right Upper Lobe] Blood Pressure Blood Pressure 135/78 [Left] O2 Sat by Pulse 97 97 Oximetry 12/02/16 12/02/16 12/02/16 01:00 03:00 05:00 Temperature Pulse Rate 106 H 102 H 106 H Pulse Rate [ Anterior Bilateral Throughout] Pulse Rate [ Anterior Right Throughout] Pulse Rate [ Anterior Right Upper Lobe] Respiratory 16 18 18 Rate Respiratory Rate [Anterior Bilateral Throughout] Respiratory Rate [Anterior Right Throughout] Respiratory Rate [Anterior Right Upper Lobe] Blood Pressure Blood Pressure 153/70 142/74 138/62 [Left] O2 Sat by Pulse 97 97 97 Oximetry 12/02/16 12/02/16 12/02/16 06:35 09:08 09:24 Temperature Pulse Rate 103 H Pulse Rate [ 105 H Anterior Bilateral Throughout] Pulse Rate [ 100 H 105 H Anterior Right Throughout] Pulse Rate [ 100 H Anterior Right Upper Lobe] Respiratory 18 Rate Respiratory 18 Rate [Anterior Bilateral Throughout] Respiratory 14 18 Rate [Anterior Right Throughout] Respiratory 14 Rate [Anterior Right Upper Lobe] Blood Pressure Blood Pressure 144/64 [Left] O2 Sat by Pulse 96 Oximetry 12/02/16 12:32 Temperature Pulse Rate 101 H Pulse Rate [ Anterior Bilateral Throughout] Pulse Rate [ Anterior Right Throughout] Pulse Rate [ Anterior Right Upper Lobe] Respiratory 18 Rate Respiratory Rate [Anterior Bilateral Throughout] Respiratory Rate [Anterior Right Throughout] Respiratory Rate [Anterior Right Upper Lobe] Blood Pressure Blood Pressure 150/67 [Left] O2 Sat by Pulse 96 Oximetry - Reevaluation(s) Reevaluation #1: 12/01/16 23:54 Differential diagnosis: Chronic COPD, pneumonia, acute COPD, pulmonary embolus, oxygen dependence Assessment and plan: 66-year-old male who is home oxygen dependent, was discharged recently with home oxygen, and then the oxygen company reclaim his oxygen tank. He is afebrile with reassuring vital signs with the exception of slight tachycardia. He is saturating well, and has no rales or rhonchi. I suspect that the patient's main issue is not having oxygen at home. However, he did report decreased exercise tolerance with no chest pain. I have not seen him desaturate. Given his recent hospital admission, And complaint of shortness of breath without wheezing a d-dimer sent to risk stratify the patient for pulmonary embolus, but I consider the patient to be low risk by well's criteria. At this point in time, I don't think that there is objective medical indication to admit the patient to the hospital, this is discussed with the hospital physician, Dr. Jaimes, who agrees. We'll continue the patient's current outpatient medications, he will be given albuterol, Atrovent, normal saline. He will require a case management consult to help facilitate and initiate outpatient oxygen therapy. Reevaluation #2: 12/02/16 04:39 D-dimer was elevated, CT scan of the chest is negative. Patient is sleeping comfortably. We will continue his outpatient medications. Case management consult is pending to arrange outpatient oxygen therapy. care was transferred to Dr Santos pending case management consult 12/03/16 19:39 ED Medical Decision Making - Lab Data Result diagrams: 12/01/16 18:20 12/01/16 18:20 Vital Signs 12/01/16 12/01/16 12/01/16 17:05 22:39 22:45 Temperature 98.8 F Pulse Rate 103 H 108 H Pulse Rate [ Anterior Bilateral Throughout] Respiratory 18 20 18 Rate Respiratory Rate [Anterior Bilateral Throughout] Blood Pressure 147/87 Blood Pressure 135/78 [Left] O2 Sat by Pulse 96 97 97 Oximetry 12/01/16 12/01/16 12/01/16 23:01 23:05 23:46 Temperature Pulse Rate 107 H Pulse Rate [ 105 H Anterior Bilateral Throughout] Respiratory 16 Rate Respiratory 20 Rate [Anterior Bilateral Throughout] Blood Pressure Blood Pressure 135/78 [Left] O2 Sat by Pulse 97 97 Oximetry Vital Signs 12/01/16 12/01/16 12/01/16 17:05 22:39 22:45 Temperature 98.8 F Pulse Rate 103 H 108 H Pulse Rate [ Anterior Bilateral Throughout] Respiratory 18 20 18 Rate Respiratory Rate [Anterior Bilateral Throughout] Blood Pressure 147/87 Blood Pressure 135/78 [Left] O2 Sat by Pulse 96 97 97 Oximetry 0312/01/16 12/01/16 23:01 23:05 23:46 Temperature Pulse Rate 107 H Pulse Rate [ 105 H Anterior Bilateral Throughout] Respiratory 16 Rate Respiratory 20 Rate [Anterior Bilateral Throughout] Blood Pressure Blood Pressure 135/78 [Left] O2 Sat by Pulse 97 97 Oximetry Lab Results 12/01/16 12/01/16 12/01/16 Range/Units 18:20 18:20 23:18 WBC 5.6 (4.5-11.0) K/mm3 RBC 3.64 L (3.65-5.03) M/mm3 Hgb 12.0 (11.8-15.2) gm/dl Hct 36.4 (35.5-45.6) % MCV 100 H (84-94) fl MCH 33 H (28-32) pg MCHC 33 (32-34) % RDW 14.6 (13.2-15.2) % Plt Count 89 L (140-440) K/mm3 Lymph % (Auto) 16.0 (13.4-35.0) % Colbert % (Auto) 10.4 H (0.0-7.3) % Eos % (Auto) 4.3 (0.0-4.3) % Baso % (Auto) 1.6 (0.0-1.8) % Lymph # 0.9 L (1.2-5.4) K/mm3 Colbert # 0.6 (0.0-0.8) K/mm3 Eos # 0.2 (0.0-0.4) K/mm3 Baso # 0.1 (0.0-0.1) K/mm3 Seg Neutrophils % 67.7 (40.0-70.0) % Seg Neutrophils # 3.8 (1.8-7.7) K/mm3 PT 14.7 (12.2-14.9) Sec. INR 1.16 H (0.87-1.13) D-Dimer 296.48 H (0-234) ng/mlDDU Sodium 136 L (137-145) mmol/L Potassium 4.0 (3.6-5.0) mmol/L Chloride 95.9 L (98-107) mmol/L Carbon Dioxide 26 (22-30) mmol/L Anion Gap 18 mmol/L BUN 10 (9-20) mg/dL Creatinine 0.6 L (0.8-1.5) mg/dL Estimated GFR > 60 ml/min BUN/Creatinine Ratio 16.66 % Glucose 115 H (75-100) mg/dL Calcium 9.0 (8.4-10.2) mg/dL Troponin T < 0.010 (0.00-0.029) ng/mL - EKG Data -: EKG Interpreted by Me Rate: tachycardia - EKG Data When compared to previous EKG there are: no significant change Interpretation: unchanged when compared t (november 2016) 12/01/16 23:59 Sinus tachycardia, 104 bpm, atrial enlargement, not morphologically consistent with STEMI. - Radiology Data Radiology results: image reviewed interpreted by me: X-ray of the chest negative for acute disease, chronic changes noted, no acute pathology. ct angio of chest negative Critical care attestation.: If time is entered above; I have spent that time in minutes in the direct care of this critically ill patient, excluding procedure time. ED Disposition Clinical Impression: COPD (chronic obstructive pulmonary disease) Disposition: DISCHARGED TO HOME OR SELFCARE Is pt being admited?: No Does the pt Need Aspirin: No Condition: Stable Instructions: Chronic Obstructive Pulmonary Disease (ED) Additional Instructions: Continue outpatient medications. Follow up with the primary care doctor or author's agent specialist within the next week. Return to the ER right away with fevers or chills, chest pain or shortness of breath, nausea or vomiting, inability to tolerate liquid feeds. Referrals: PRIMARY CARE, [Primary Care Provider] - 3-5 Days DYLON MALIN MD [Staff Physician] - 3-5 Days GERALD LARKIN MD [Staff Physician] - 3-5 Days
[2016-12-01 23:53] LABS: INR 1.16 (0.87-1.13)
[2016-12-02] MEDS ORDERED: NACL ONE (00:06)
--- NOTE | 2016-12-02 01:31 | Cat Scan Report ---
FINAL REPORT PROCEDURE: CT ANGIO CHEST TECHNIQUE: Computerized tomographic angiography of the chest was performed after the IV injection of iodinated nonionic contrast including image processing. The image data was postprocessed using 2-dimensional multiplanar reformatted (MPR) and 3-dimensional (MIP and/or volume rendered) techniques. HISTORY: sob COMPARISON: 11/14/2016 FINDINGS: Heart and pericardium: Normal. Thoracic aorta: Normal. Pulmonary vasculature: No evidence of pulmonary arterial emboli. Lymph nodes: No enlarged thoracic lymph nodes. Lungs: Mild chronic obstructive changes with emphysema in both lungs. This has not changed. Small focus of round atelectasis identified in the right lower lung laterally. This has not changed since prior study. No evidence of consolidation. The central airway is patent.. Pleural space: No effusion, thickening, or pneumothorax. Musculoskeletal structures: No significant abnormality. Upper abdominal structures: No significant abnormality. IMPRESSION: There is no evidence of pulmonary arterial emboli. COPD with mild emphysema is unchanged. Small area of round atelectasis in the right lower lung laterally is again noted and unchanged.
[2016-12-02] MEDS ORDERED: PROAIR IH PRN (04:40)
[2016-12-02] MEDS ORDERED: GUAIFENESIN 400 MG PO PRN (04:40)
[2016-12-02] MEDS ORDERED: SYMBICORT INHALATION SCH (04:45)
[2016-12-02] MEDS ORDERED: PULMICORT IH SCH (08:00)
[2016-12-02] MEDS ORDERED: BROVANA NEBU IH SCH (08:00)
[2016-12-02] MEDS ORDERED: SPIRIVA IH SCH (10:00)
[2016-12-02] MEDS ORDERED: CLARITIN PO SCH (10:00)
[2016-12-02] MEDS ORDERED: PAXIL PO SCH (10:00)
[2016-12-02] MEDS ORDERED: INDERAL PO SCH (10:00)
--- NOTE | 2016-12-02 10:26 | XRay Report ---
Chest 2 views: History: Shortness of breath. Findings: Normal cardiomediastinal silhouette. Trachea is midline. No consolidation, pneumothorax or pleural effusion. Impression: No acute cardiopulmonary findings.
[2016-12-02 12:33] VITALS: BP 150/67
[2016-12-02] MEDS ORDERED: ROBITUSSIN PO PRN ×2 (13:00)
== END 2016-12-02 13:39 | disposition home or self-care (01) ==
LOC: ED 16:34
DX: J44.9 Chronic obstructive pulmonary disease, unspecified (principal); I10 Essential (primary) hypertension; J45.909 Unspecified asthma, uncomplicated; M19.90 Unspecified osteoarthritis, unspecified site; F41.9 Anxiety disorder, unspecified; Z86.19 Personal history of other infectious and parasitic diseases; Z87.891 Personal history of nicotine dependence; Z88.0 Allergy status to penicillin
CPT/HCPCS: 36415; 71020; 71275; 80048; 84484; 85025; 85379; 85610; 93005; 93010; 94640; 96360; 96361; 99285; J7030; Q9967

== ENCOUNTER 2018-09-21 02:23 | Inpatient (IN) | payer MEDICARE ==
[2018-09-21] MEDS ORDERED: DUONEB *Not for PRN Use IH ONE ×2 (03:12→03:35)
--- NOTE | 2018-09-21 03:30 | Emergency Department Report ---
ED Shortness of Breath HPI - General Chief Complaint: Dyspnea/Respdistress Stated Complaint: LIZ Time Seen by Provider: 09/21/18 03:00 Source: patient, EMS Mode of arrival: Stretcher Limitations: Other - History of Present Illness Initial Comments: She is a 68-year-old male presents emergency room with complaints of shortness of breath and cough and wheezing. Patient brought on by EMS. EMS gave the patient magnesium and Solu-Medrol and 2 nebulizers. Patient is still wheezing. Patient still complaining of difficulties breathing. Patient is in respiratory distress. Patient has a long history of COPD. Patient denies chest pain. Patient denies fever. Patient denies chills. Patient denies abdominal pain he states his cough is a dry cough. Patient states since been going on for 3 days. MD Complaint: shortness of breath, cough -: Sudden Known History Of: COPD Context: recent URI Associated Symptoms: cough Treatments Prior to Arrival: oxygen, bronchodilator - Related Data Home Oxygen Therapy: Yes Home Oxygen Amount: 2 Liters Home Medications Medication Instructions Recorded Confirmed Last Taken Cetirizine HCl 10 mg PO DAILY 11/15/16 09/23/18 09/12/18 10:00 RX: Paroxetine HCl [PARoxetine] 20 mg PO DAILY PRN 11/15/16 09/23/18 08/07/18 22:00 RX: Simethicone [Gas-X] 1 mg PO 4XD 11/15/16 09/23/18 09/19/18 21:00 Previous Rx's Medication Instructions Recorded Last Taken Type RX: ALBUTEROL Inhaler (OR & NICU) 2 puff IH QID PRN #1 inha 11/17/16 09/19/18 20:00 Rx [ProAir HFA Inhaler] RX: Lisinopril [Zestril TAB] 20 mg PO QDAY #30 tablet 08/04/18 08/01/18 10:00 Rx RX: Prednisone [predniSONE 10 mg 10 mg PO .TAPER #1 tab.ds.pk 08/04/18 08/08/18 10:00 Rx (6-Day Pack, 21 Tabs)] RX: Tiotropium [place] [Spiriva 4 gm IH DAILY #1 mist.inhal 08/04/18 09/19/18 20:00 Rx Respimat] RX: guaiFENesin [Robitussin] 200 mg PO Q4H PRN #14 oral.liqd 08/04/18 08/14/18 08:00 Rx RX: hydrALAZINE [Apresoline TAB] 25 mg PO TID #90 tablet 08/04/18 07/23/18 12:00 Rx Symbicort 160-4.5 (Nf) 1 inhalation INHALATION BID #1 08/04/18 09/19/18 20:00 Rx Prednisone [predniSONE 10 mg 10 mg PO .TAPER #1 tab.ds.pk 09/24/18 Unknown Rx (6-Day Pack, 21 Tabs)] levoFLOXacin [Levaquin TAB] 500 mg PO QDAY #5 tablet 09/24/18 Unknown Rx Allergies Allergy/AdvReac Type Severity Reaction Status Date / Time Penicillins AdvReac Hives Verified 12/01/16 17:11 ED Review of Systems ROS: Stated complaint: LIZ Other details as noted in HPI Constitutional: denies: chills, fever Eyes: denies: eye pain, eye discharge, vision change ENT: denies: ear pain, throat pain Respiratory: cough, shortness of breath. denies: wheezing Cardiovascular: denies: chest pain, palpitations Endocrine: no symptoms reported Gastrointestinal: denies: abdominal pain, nausea, diarrhea Genitourinary: denies: urgency, dysuria Musculoskeletal: denies: back pain, joint swelling, arthralgia Skin: denies: rash, lesions Neurological: denies: headache, weakness, paresthesias Psychiatric: denies: anxiety, depression Hematological/Lymphatic: denies: easy bleeding, easy bruising ED Past Medical Hx - Past Medical History Previous Medical History?: Yes Hx Hypertension: Yes Hx Liver Disease: Yes (HEPATITIS C) Hx Arthritis: Yes Hx Psychiatric Treatment: Yes (ANXIETY) Hx Asthma: Yes Hx COPD: Yes Additional medical history: TREMORS. Emphysema - Surgical History Additional Surgical History: HERNIA REPAIR. COLON SURGERY - Family History Family history: hypertension - Social History Smoking Status: Former Smoker Substance Use Type: Alcohol - Medications Home Medications: Home Medications Medication Instructions Recorded Confirmed Last Taken Type Cetirizine HCl 10 mg PO DAILY 11/15/16 09/23/18 09/12/18 10:00 History RX: Paroxetine HCl [PARoxetine] 20 mg PO DAILY PRN 11/15/16 09/23/18 08/07/18 22:00 History RX: Simethicone [Gas-X] 1 mg PO 4XD 11/15/16 09/23/18 09/19/18 21:00 History RX: ALBUTEROL Inhaler (OR & NICU) 2 puff IH QID PRN #1 inha 11/17/16 09/23/18 09/19/18 20:00 Rx [ProAir HFA Inhaler] RX: Lisinopril [Zestril TAB] 20 mg PO QDAY #30 tablet 08/04/18 09/23/18 08/01/18 10:00 Rx RX: Prednisone [predniSONE 10 mg 10 mg PO .TAPER #1 tab.ds.pk 08/04/18 09/23/18 08/08/18 10:00 Rx (6-Day Pack, 21 Tabs)] RX: Tiotropium [place] [Spiriva 4 gm IH DAILY #1 mist.inhal 08/04/18 09/23/18 09/19/18 20:00 Rx Respimat] RX: guaiFENesin [Robitussin] 200 mg PO Q4H PRN #14 oral.liqd 08/04/18 09/23/18 08/14/18 08:00 Rx RX: hydrALAZINE [Apresoline TAB] 25 mg PO TID #90 tablet 08/04/18 09/23/18 07/23/18 12:00 Rx Symbicort 160-4.5 (Nf) 1 inhalation INHALATION BID #1 08/04/18 09/23/18 09/19/18 20:00 Rx Prednisone [predniSONE 10 mg 10 mg PO .TAPER #1 tab.ds.pk 09/24/18 Unknown Rx (6-Day Pack, 21 Tabs)] levoFLOXacin [Levaquin TAB] 500 mg PO QDAY #5 tablet 09/24/18 Unknown Rx ED Physical Exam - General Limitations: Other General appearance: alert, in no apparent distress - Head Head exam: Present: atraumatic, normocephalic - Eye Eye exam: Present: normal appearance - ENT ENT exam: Present: mucous membranes dry - Neck Neck exam: Present: normal inspection - Respiratory Respiratory exam: Present: respiratory distress, wheezes, accessory muscle use, decreased breath sounds - Cardiovascular Cardiovascular Exam: Present: regular rate, normal rhythm. Absent: systolic murmur, diastolic murmur, rubs, gallop - GI/Abdominal GI/Abdominal exam: Present: soft, normal bowel sounds - Rectal Rectal exam: Present: deferred - Extremities Exam Extremities exam: Present: normal inspection - Back Exam Back exam: Present: normal inspection - Neurological Exam Neurological exam: Present: alert, oriented X3 - Psychiatric Psychiatric exam: Present: normal affect, normal mood - Skin Skin exam: Present: warm, dry, intact, normal color. Absent: rash ED Course Vital Signs 09/21/18 09/21/18 09/21/18 03:07 03:10 03:15 Temperature 98.1 F Pulse Rate 111 H 116 H Pulse Rate [ 116 H Bilateral Throughout] Respiratory 24 21 Rate Respiratory 21 Rate [Bilateral Throughout] Blood Pressure 159/71 159/71 Blood Pressure [Right] O2 Sat by Pulse 97 98 Oximetry 09/21/18 09/21/18 09/21/18 03:20 03:30 03:54 Temperature Pulse Rate 110 H 106 H 101 H Pulse Rate [ 118 H Bilateral Throughout] Respiratory 20 21 21 Rate Respiratory 21 Rate [Bilateral Throughout] Blood Pressure 156/84 156/84 Blood Pressure 164/89 [Right] O2 Sat by Pulse 98 98 98 Oximetry 09/21/18 09/21/18 09/21/18 04:00 04:30 05:00 Temperature Pulse Rate 101 H 96 H 96 H Pulse Rate [ Bilateral Throughout] Respiratory 21 22 19 Rate Respiratory Rate [Bilateral Throughout] Blood Pressure 164/89 186/80 170/81 Blood Pressure [Right] O2 Sat by Pulse 99 97 97 Oximetry 09/21/18 09/21/18 09/21/18 05:30 06:00 06:27 Temperature Pulse Rate 94 H 99 H 97 H Pulse Rate [ Bilateral Throughout] Respiratory 23 20 21 Rate Respiratory Rate [Bilateral Throughout] Blood Pressure 171/87 190/96 Blood Pressure [Right] O2 Sat by Pulse 99 100 96 Oximetry 09/21/18 09/21/18 09/21/18 06:30 06:35 07:00 Temperature Pulse Rate 96 H 95 H 99 H Pulse Rate [ Bilateral Throughout] Respiratory 17 17 16 Rate Respiratory Rate [Bilateral Throughout] Blood Pressure 190/96 175/91 Blood Pressure 170/81 [Right] O2 Sat by Pulse 97 98 99 Oximetry 09/21/18 09/21/18 09/21/18 07:30 08:30 09:00 Temperature Pulse Rate 98 H 98 H 101 H Pulse Rate [ Bilateral Throughout] Respiratory 23 17 22 Rate Respiratory Rate [Bilateral Throughout] Blood Pressure 144/115 191/107 191/107 Blood Pressure [Right] O2 Sat by Pulse 99 99 99 Oximetry - Reevaluation(s) Reevaluation #1: Initial evaluation done and patient is having respiratory distress along with audible wheezes and retractions. Patient was placed on BiPAP. We'll change treatment when necessary. Will give patient a breathing treatment. 09/21/18 03:02 pt on BiPAP and improving. Retractions have improved. 09/21/18 04:02 Patient improvement. Patient states he is feeling better. Patient will stay on BiPAP. lung sounds are clear. 09/21/18 04:[address] is pending. Patient is improving. Patient denies shortness of breath 09/21/18 06:43 Discussed all results with patient. Patient agrees with plan of care and admission. Patient admitted to the hospitalist for further evaluation treatment 09/21/18 07:02 - Consultations Consultation #1: Os was to admit patient. Hospitalist consult for admission. Hospitalist to assume care patient. 09/21/18 07:01 ED Medical Decision Making - Lab Data Result diagrams: 09/22/18 03:44 09/22/18 03:44 - EKG Data -: EKG Interpreted by Ok EKG shows normal: sinus rhythm, axis, intervals, QRS complexes, ST-T waves Rate: tachycardia - Radiology Data Radiology results: report reviewed FINAL REPORT PROCEDURE: CT ANGIO CHEST TECHNIQUE: Computerized tomographic angiography of the chest was performed after the IV injection of iodinated nonionic contrast including image processing. The image data was postprocessed using 2- dimensional multiplanar reformatted (MPR) and 3-dimensional (MIP and/or volume rendered) techniques. HISTORY: sob. hypoxia COMPARISON: No prior studies are available for comparison. FINDINGS: Heart and pericardium: Normal. Thoracic aorta: There is calcified atherosclerosis in the thoracic aorta. There is no aneurysm or dissection.. Pulmonary vasculature: There is no pulmonary embolism.. Lymph nodes: No enlarged thoracic lymph nodes. Lungs: The lungs are expanded. There is a 2.2 centimeter pleural base mass in the right lower lung similar to prior study. Malignancy cannot be excluded. There is advanced COPD. There are no infiltrates.. Pleural space: No effusion, thickening, or pneumothorax. Musculoskeletal structures: There are fracture deformities of T12, L1 and L3 which were not present on the prior study. Acute fractures are not excluded. The sternum and ribs are intact.. Upper abdominal structures: There irregularity of the liver suggesting cirrhosis. There is cholelithiasis.. IMPRESSION: There is no pulmonary embolism. There is calcified atherosclerosis in the thoracic aorta. There is no aneurysm or dissection.. There is a 2.2 centimeter pleural base mass in the right lower lung similar to prior study. Malignancy cannot be excluded. There is advanced COPD. There are no infiltr ates.. There are fracture deformities of T12, L1 and L3 which were not present on the prior study. Acute fractures are not excluded. Transcribed By: CO Dictated By: RODRÍGUEZ WAGNER MD Electronically Authenticated By: RODRÍGUEZ WAGNER MD Signed Date/Time: 09/21/18 0713 - Medical Decision Making This 68-year-old male presents to er with complaints of shortness of breath and cough. Patient found to have a COPD exacerbation. Patient given multiple medications and placed on BiPAP. Patient's distress has improved. Patient responded well to therapy. Patient admitted to the hospitalist service for further evaluation treatment. - Differential Diagnosis COPD Exacerbation. Shortness of breath. Hypoxia. Cough. URI. Critical Care Time: Yes Critical care attestation.: If time is entered above; I have spent that time in minutes in the direct care of this critically ill patient, excluding procedure time. Critical Care Time: 80 minutes ED Disposition Clinical Impression: Shortness of breath, Hypoxia, COPD exacerbation, Respiratory distress COPD (chronic obstructive pulmonary disease) Qualifiers: COPD type: unspecified COPD Qualified Code(s): J44.9 - Chronic obstructive pulmonary disease, unspecified Disposition: OP ADMIT IP TO THIS HOSP Is pt being admited?: Yes Does the pt Need Aspirin: No Condition: Stable Time of Disposition: 07:09
[2018-09-21 03:52] LABS: Basophils % (Auto) 0.3 % (0.0-1.8); Eosinophils # (Auto) 0.1 K/mm3 (0.0-0.4); Eosinophils % (Auto) 1.4 % (0.0-4.3); Hematocrit 35.1 % (35.5-45.6); Hemoglobin 11.6 gm/dl (11.8-15.2); Lymphocytes # (Auto) 0.6 K/mm3 (1.2-5.4); Lymphocytes % (Auto) 7.5 % (13.4-35.0); Mean Corpuscular HGB Conc 33 % (32-34); Mean Corpuscular Volume 96 fl (84-94); Monocytes # (Auto) 0.9 K/mm3 (0.0-0.8); Monocytes % (Auto) 10.4 % (0.0-7.3); Platelet Count 161 K/mm3 (140-440); Red Blood Count 3.67 M/mm3 (3.65-5.03); Red Cell Distribution Width 15.6 % (13.2-15.2)
[2018-09-21 04:10] LABS: BUN/Creatinine Ratio 18; Blood Urea Nitrogen 7 mg/dL (9-20); Calcium 9.3 mg/dL (8.4-10.2); Hemolysis Index 51
--- NOTE | 2018-09-21 04:55 | XRay Report ---
FINAL REPORT PROCEDURE: XR CHEST 1V AP TECHNIQUE: Chest radiograph anteroposterior view. CPT 46355 HISTORY: SOB COMPARISON: 07/31/2018 FINDINGS: Heart: Normal. Mediastinum/Vessels: Normal. Lungs/Pleural space: Lungs are expanded. There are no infiltrates, effusions or pneumothoraces.. Bony thorax: No acute osseous abnormality. Life support devices: None. IMPRESSION: No acute cardiopulmonary abnormality.
--- NOTE | 2018-09-21 07:13 | Cat Scan Report ---
FINAL REPORT PROCEDURE: CT ANGIO CHEST TECHNIQUE: Computerized tomographic angiography of the chest was performed after the IV injection of iodinated nonionic contrast including image processing. The image data was postprocessed using 2-dim ensional multiplanar reformatted (MPR) and 3-dimensional (MIP and/or volume rendered) techniques. HISTORY: sob. hypoxia COMPARISON: No prior studies are available for comparison. FINDINGS: Heart and pericardium: Normal. Thoracic aorta: There is calcified atherosclerosis in the thoracic aorta. There is no aneurysm or dis section.. Pulmonary vasculature: There is no pulmonary embolism.. Lymph nodes: No enlarged thoracic lymph nodes. Lungs: The lungs are expanded. There is a 2.2 centimeter pleural base mass in the right lower lung si milar to prior study. Malignancy cannot be excluded. There is advanced COPD. There are no infiltrates .. Pleural space: No effusion, thickening, or pneumothorax. Musculoskeletal structures: There are fracture deformities of T12, L1 and L3 which were not present o n the prior study. Acute fractures are not excluded. The sternum and ribs are intact.. Upper abdominal structures: There irregularity of the liver suggesting cirrhosis. There is cholelithi asis.. IMPRESSION: There is no pulmonary embolism. There is calcified atherosclerosis in the thoracic aorta. There is no aneurysm or dissection.. There is a 2.2 centimeter pleural base mass in the right lower lung similar to prior study. Malignanc y cannot be excluded. There is advanced COPD. There are no infiltrates.. There are fracture deformities of T12, L1 and L3 which were not present on the prior study. Acute fra ctures are not excluded.
--- NOTE | 2018-09-21 07:55 | History and Physical Report ---
History of Present Illness Date of examination: 09/21/18 Date of admission: 09/21/18 Chief complaint: shortness of breath History of present illness: Patient is a 68-year-old male with a past medical history of COPD/emphysema with oxygen dependence, hypertension, asthma, hepatitis C, anxiety, and emphysema presents to the Hospital complaining of shortness of breath, cough and wheezing which has since gotten worse from his baseline. The patient reports he was in his normal usual state of health with baseline shortness of breath since las admission when he noticed worsening exertinal dyspnea in the last 3 days, this was preceeded a day earlier with cough but was none productive. He activate the EMS system and despite magensium, solumedrol and NEB there was not improvement prompting presentation to the ED. In the ED the patient was palced on a BIPAP, was also noted to have elevated BP which the patient states he has had for some time as the pharmacy lost his medication and he has not been able to follow with his doctors at the [facility] He denies any fever, nausea, vomiting, chest pain. Past History Past Medical History: COPD, hepatitis (c), hypertension, hyperlipidemia, other (asthma, ) Past Surgical History: No surgical history, Other (colon surgery for polypectomy) Social history: lives with family, smoking (ex) Family history: no significant family history Medications and Allergies Allergies Allergy/AdvReac Type Severity Reaction Status Date / Time Penicillins AdvReac Hives Verified 12/01/16 17:11 Home Medications Medication Instructions Recorded Confirmed Last Taken Type Cetirizine HCl 10 mg PO DAILY 11/15/16 08/01/18 Unknown History Paroxetine HCl [PARoxetine] 20 mg PO DAILY PRN 11/15/16 08/01/18 05/14/18 History Simethicone [Gas-X] 1 mg PO 4XD 11/15/16 08/01/18 Unknown History ALBUTEROL Inhaler (OR & NICU) 2 puff IH QID PRN #1 inha 11/17/16 08/01/18 07/06/18 08:00 Rx [ProAir HFA Inhaler] Lisinopril [Zestril TAB] 20 mg PO QDAY #30 tablet 08/04/18 Unknown Rx Prednisone [predniSONE 10 mg 10 mg PO .TAPER #1 tab.ds.pk 08/04/18 Unknown Rx (6-Day Pack, 21 Tabs)] Symbicort 160-4.5 (Nf) 1 inhalation INHALATION BID #1 08/04/18 Unknown Rx Tiotropium [place] [Spiriva 4 gm IH DAILY #1 mist.inhal 08/04/18 Unknown Rx Respimat] guaiFENesin [Robitussin] 200 mg PO Q4H PRN #14 oral.liqd 08/04/18 Unknown Rx hydrALAZINE [Apresoline TAB] 25 mg PO TID #90 tablet 08/04/18 Unknown Rx Review of Systems All systems: negative Constitutional: fatigue, weakness, malaise, lethargy, no weight loss, no weight gain, no fever, no chills, no sweats, no night sweats, no anorexia Cardiovascular: orthopnea, shortness of breath, no chest pain, no palpitations Respiratory: cough, shortness of breath, dyspnea on exertion, no cough with sputum, no excessive sputum, no hemoptysis Exam - Physical Exam Narrative exam: VITAL SIGNS: Reviewed. GENERAL: The patient appeared chronically ill appearing, and with dyspnea. Vital signs as documented. HEAD: No signs of head trauma. EYES: Pupils are equal. Extraocular motions intact. EARS: Hearing grossly intact. MOUTH: Oropharynx is normal. NECK: No adenopathy, no JVD. CHEST: Chest with Diminshed breath sounds bilaterally. some exp wheezes, No rales, or rhonchi. CARDIAC: Regular rate and rhythm. S1 and S2, without murmurs, gallops, or rubs. VASCULAR: No Edema. Peripheral pulses normal and equal in all extremities. ABDOMEN: Soft, without detectable tenderness. No sign of distention. No rebound or guarding, and no masses palpated. Bowel Sounds normal. MUSCULOSKELETAL: Good range of motion of all major joints. Extremities without clubbing, cyanosis or edema. NEUROLOGIC EXAM: Alert and oriented x 3. No focal sensory or strength deficits. Speech normal. Follows commands. PSYCHIATRIC: Mood anxious SKIN: age appropriate wrinkles and blemish - Constitutional Vitals: Temp Pulse Resp BP Pulse Ox 98.1 F 98 H 23 144/115 99 09/21/18 03:07 09/21/18 07:30 09/21/18 07:30 09/21/18 07:30 09/21/18 07:30 Results - Labs CBC & Chem 7: 01/13/19 03:44 09/22/18 03:44 Labs: Laboratory Last Values WBC 8.5 K/mm3 (4.5-11.0) 09/21/18 03:43 RBC 3.67 M/mm3 (3.65-5.03) 09/21/18 03:43 Hgb 11.6 gm/dl (11.8-15.2) L 09/21/18 03:43 Hct 35.1 % (35.5-45.6) L 09/21/18 03:43 MCV 96 fl (84-94) H 09/21/18 03:43 MCH 32 pg (28-32) 09/21/18 03:43 MCHC 33 % (32-34) 09/21/18 03:43 RDW 15.6 % (13.2-15.2) H 09/21/18 03:43 Plt Count 161 K/mm3 (140-440) 09/21/18 03:43 Lymph % (Auto) 7.5 % (13.4-35.0) L 09/21/18 03:43 [place] % (Auto) 10.4 % (0.0-7.3) H 09/21/18 03:43 Eos % (Auto) 1.4 % (0.0-4.3) 09/21/18 03:43 Baso % (Auto) 0.3 % (0.0-1.8) 09/21/18 03:43 Lymph # 0.6 K/mm3 (1.2-5.4) L 09/21/18 03:43 [place] # 0.9 K/mm3 (0.0-0.8) H 09/21/18 03:43 Eos # 0.1 K/mm3 (0.0-0.4) 09/21/18 03:43 Baso # 0.0 K/mm3 (0.0-0.1) 09/21/18 03:43 Seg Neutrophils % 80.4 % (40.0-70.0) H 09/21/18 03:43 Seg Neutrophils # 6.8 K/mm3 (1.8-7.7) 09/21/18 03:43 Sodium 135 mmol/L (137-145) L 09/21/18 03:43 Potassium 4.7 mmol/L (3.6-5.0) 09/21/18 03:43 Chloride 89.8 mmol/L (98-107) L 09/21/18 03:43 Carbon Dioxide 32 mmol/L (22-30) H 09/21/18 03:43 Anion Gap 18 mmol/L 09/21/18 03:43 BUN 7 mg/dL (9-20) L 09/21/18 03:43 Creatinine 0.4 mg/dL (0.8-1.5) L 09/21/18 03:43 Estimated GFR > 60 ml/min 09/21/18 03:43 BUN/Creatinine Ratio 18 % 09/21/18 03:43 Glucose 124 mg/dL (75-100) H 09/21/18 03:43 Calcium 9.3 mg/dL (8.4-10.2) 09/21/18 03:43 Troponin T < 0.010 ng/mL (0.00-0.029) 09/21/18 03:43 Assessment and Plan Assessment and plan: Patient is a 68-year-old male with a past medical history of COPD/emphysema with oxygen dependence, hypertension, asthma, hepatitis C, anxiety, and emphysema presents to the Hospital complaining of shortness of breath, cough and wheezing which has since gotten worse from his baseline. The patient reports he was in his normal usual state of health with baseline shortness of breath since las admission when he noticed worsening exertinal dy spnea in the last 3 days, this was preceeded a day earlier with cough but was none productive. He activate the EMS system and despite magensium, solumedrol and NEB there was not improvement prompting presentation to the ED. In the ED the patient was palced on a BIPAP, was also noted to have elevated BP which the patient states he has had for some time as the pharmacy lost his medication and he has not been able to follow with his doctors at the NH He denies any fever, nausea, vomiting, chest pain. CTA chest IMPRESSION: There is no pulmonary embolism. There is calcified atherosclerosis in the thoracic aorta. There is no aneurysm or dissection.. There is a 2.2 centimeter pleural base mass in the right lower lung similar to prior study. Malignancy cannot be excluded. There is advanced COPD. There are no infiltrates.. There are fracture deformities of T12, L1 and L3 which were not present on the prior study. Acute fractures are not excluded. Acute on Chronic Respiratory failure with hypoxia SIRS secondary to Non infectious etiology COPD exacerbation Hypertensive urgency Hyponatremia HTN ANEMIA T12,L1,L3 Fractures, ?acute or subacute- not present in prior study, ?pathologic -per patient this is chronic, he is aware. Still I recommend in light of pleural base mass. Patient should have Hemo eval outpatient -Denies any recent fall Pleural base mass on right lower lung, similar to prior study. Malignancy not excluded. since 2017 Plan: Admit to IMCU Bp control NEBS, LABA, JONATHAN, IV STEROIDS Emperic abx with Levaquin PULMONARY CONSULT [facility] Patient reports Flu shot compliance this year Reports has not taken BP meds due to pharmacy losing his medication Fall precautions Am Labs PO intake when off the BIPAP DVT/GI prophy CCT 75mins Advance Directives: Yes Plan of care discussed with patient/family: Yes
[2018-09-21] MEDS ORDERED: PROVENTIL IH PRN (08:03)
[2018-09-21] MEDS ORDERED: SODIUM CHLORIDE FLUSH SYRINGE 10 ML IV PRN (08:03)
[2018-09-21] MEDS ORDERED: PAXIL PO PRN (08:09)
[2018-09-21] MEDS ORDERED: APRESOLINE IV PRN (08:11)
[2018-09-21] MEDS ORDERED: PULMICORT IH SCH (08:15)
[2018-09-21] MEDS: CLARITIN PO SCH (09:58)
[2018-09-21] MEDS: LEVAQUIN 750MG/150ML 750 MG/150 ML BAG IV SCH (09:58)
[2018-09-21] MEDS: HEPARIN SUB-Q SCH ×2 (09:58→21:08)
[2018-09-21] MEDS: SODIUM CHLORIDE FLUSH SYRINGE 10 ML IV SCH ×2 (09:59→22:00)
[2018-09-21] MEDS: ZESTRIL PO SCH (09:59)
[2018-09-21] MEDS ORDERED: SYMBICORT INHALATION SCH (10:00)
[2018-09-21] MEDS ORDERED: MYLICON PO SCH (10:00)
[2018-09-21] MEDS ORDERED: NON-FORMULARY (Cetirizine Hcl 10 MG) PO SCH (10:00)
[2018-09-21] MEDS: BROVANA NEBU IH SCH ×2 (11:25→19:23)
[2018-09-21] MEDS: PULMICORT IH SCH ×2 (11:25→19:23)
--- NOTE | 2018-09-21 11:50 | Consultation ---
History of Present Illness Reason for consult: dyspnea, COPD Medications and Allergies Allergies Allergy/AdvReac Type Severity Reaction Status Date / Time Penicillins AdvReac Hives Verified 12/01/16 17:11 Home Medications Medication Instructions Recorded Confirmed Last Taken Type Cetirizine HCl 10 mg PO DAILY 11/15/16 08/01/18 Unknown History Paroxetine HCl [PARoxetine] 20 mg PO DAILY PRN 11/15/16 08/01/18 05/14/18 History Simethicone [Gas-X] 1 mg PO 4XD 11/15/16 08/01/18 Unknown History ALBUTEROL Inhaler (OR & NICU) 2 puff IH QID PRN #1 inha 11/17/16 08/01/18 07/06/18 08:00 Rx [ProAir HFA Inhaler] Lisinopril [Zestril TAB] 20 mg PO QDAY #30 tablet 08/04/18 Unknown Rx Prednisone [predniSONE 10 mg 10 mg PO .TAPER #1 tab.ds.pk 08/04/18 Unknown Rx (6-Day Pack, 21 Tabs)] Symbicort 160-4.5 (Nf) 1 inhalation INHALATION BID #1 08/04/18 Unknown Rx Tiotropium [place] [Spiriva 4 gm IH DAILY #1 mist.inhal 08/04/18 Unknown Rx Respimat] guaiFENesin [Robitussin] 200 mg PO Q4H PRN #14 oral.liqd 08/04/18 Unknown Rx hydrALAZINE [Apresoline TAB] 25 mg PO TID #90 tablet 08/04/18 Unknown Rx Active Meds: Active Medications Albuterol (Proventil) 2.5 mg IH Q3HRT PRN PRN Reason: Shortness Of Breath Albuterol/Ipratropium (Duoneb *Not For Prn Use*) 1 ampul IH Q6HRT [facility] Arformoterol Tartrate (Brovana Nebu) 15 mcg IH Q12HRT [facility] Last Admin: 09/21/18 11:25 Dose: 15 mcg Documented by: Budesonide (Pulmicort) 1 mg IH Q12HRT [facility] Last Admin: 09/21/18 11:25 Dose: 1 mg Documented by: Guaifenesin (Robitussin) 200 mg PO Q4H PRN PRN Reason: Cough Heparin Sodium (Porcine) (Heparin) 5,000 unit SUB-Q Q12HR [facility] Last Admin: 09/21/18 09:58 Dose: 5,000 unit Documented by: Hydralazine HCl (Apresoline) 25 mg PO TID [facility] Hydralazine HCl (Apresoline) 10 mg IV Q4HR PRN PRN Reason: Hypertension Levofloxacin/Dextrose (Levaquin 750mg/150ml) 750 mg in 150 mls @ 100 mls/hr IV Q24HR [facility]; Protocol Last Admin: 09/21/18 09:58 Dose: 100 mls/hr Documented by: Lisinopril (Zestril) 20 mg PO QDAY [facility] Last Admin: 09/21/18 09:59 Dose: 20 mg Documented by: Loratadine (Claritin) 10 mg PO DAILY [facility] Last Admin: 09/21/18 09:58 Dose: 10 mg Documented by: Methylprednisolone Sodium Succinate (Solu-Medrol) 60 mg IV Q8HR [facility] Miscellaneous Medication (Tiotropium [place] [Spiriva Respimat]) 4 gm IH DAILY [facility] Paroxetine HCl (Paxil) 20 mg PO DAILY PRN PRN Reason: depression Simethicone (Mylicon) 1 mg PO 4XD [facility] Sodium Chloride (Sodium Chloride Flush Syringe 10 Ml) 10 ml IV BID [facility] Last Admin: 09/21/18 09:59 Dose: 10 ml Documented by: Sodium Chloride (Sodium Chloride Flush Syringe 10 Ml) 10 ml IV PRN PRN PRN Reason: LINE FLUSH Physical Examination Vital signs: Vital Signs Temp Pulse Resp BP Pulse Ox 98.1 F 111 H 24 159/71 97 09/21/18 03:07 09/21/18 03:07 09/21/18 03:07 09/21/18 03:07 09/21/18 03:07 Results - Laboratory Findings CBC and BMP: 09/21/18 03:43 09/21/18 03:43 Abnormal lab findings: Abnormal Labs 09/21/18 09/21/18 03:43 03:43 Hgb 11.6 L Hct 35.1 L MCV 96 H RDW 15.6 H Lymph % (Auto) 7.5 L [place] % (Auto) 10.4 H Lymph # 0.6 L [place] # 0.9 H Seg Neutrophils % 80.4 H Sodium 135 L Chloride 89.8 L Carbon Dioxide 32 H BUN 7 L Creatinine 0.4 L Glucose 124 H Assessment and Plan - Patient Problems (1) Acute and chronic respiratory failure ([id number]) Current Visit: Yes Status: Acute (2) Acute and chronic respiratory failure with hypoxia Current Visit: Yes Status: Acute (3) COPD (chronic obstructive pulmonary disease) Current Visit: Yes Status: Acute Qualifiers: COPD type: unspecified COPD Qualified Code(s): J44.9 - Chronic obstructive pulmonary disease, unspecified (4) COPD exacerbation Current Visit: Yes Status: Acute (5) Hypoxia Current Visit: Yes Status: Acute (6) Respiratory distress Current Visit: Yes Status: Acute (7) Shortness of breath Current Visit: Yes Status: Acute (8) Fever Current Visit: No Status: Acute (9) O2 dependent Current Visit: No Status: Acute
--- NOTE | 2018-09-21 13:05 | Progress Note ---
Hospitalist Physical - Constitutional Vitals: Temp Pulse Resp BP Pulse Ox 98.1 F 96 H 20 197/107 99 09/21/18 03:07 09/21/18 11:30 09/21/18 11:30 09/21/18 09:59 09/21/18 09:00 Results - Labs CBC & Chem 7: 09/21/18 03:43 09/21/18 03:43 Labs: Laboratory Last Values WBC 8.5 K/mm3 (4.5-11.0) 09/21/18 03:43 RBC 3.67 M/mm3 (3.65-5.03) 09/21/18 03:43 Hgb 11.6 gm/dl (11.8-15.2) L 09/21/18 03:43 Hct 35.1 % (35.5-45.6) L 09/21/18 03:43 MCV 96 fl (84-94) H 09/21/18 03:43 MCH 32 pg (28-32) 09/21/18 03:43 MCHC 33 % (32-34) 09/21/18 03:43 RDW 15.6 % (13.2-15.2) H 09/21/18 03:43 Plt Count 161 K/mm3 (140-440) 09/21/18 03:43 Lymph % (Auto) 7.5 % (13.4-35.0) L 09/21/18 03:43 [place] % (Auto) 10.4 % (0.0-7.3) H 09/21/18 03:43 Eos % (Auto) 1.4 % (0.0-4.3) 09/21/18 03:43 Baso % (Auto) 0.3 % (0.0-1.8) 09/21/18 03:43 Lymph # 0.6 K/mm3 (1.2-5.4) L 09/21/18 03:43 [place] # 0.9 K/mm3 (0.0-0.8) H 09/21/18 03:43 Eos # 0.1 K/mm3 (0.0-0.4) 09/21/18 03:43 Baso # 0.0 K/mm3 (0.0-0.1) 09/21/18 03:43 Seg Neutrophils % 80.4 % (40.0-70.0) H 09/21/18 03:43 Seg Neutrophils # 6.8 K/mm3 (1.8-7.7) 09/21/18 03:43 Sodium 135 mmol/L (137-145) L 09/21/18 03:43 Potassium 4.7 mmol/L (3.6-5.0) 09/21/18 03:43 Chloride 89.8 mmol/L (98-107) L 09/21/18 03:43 Carbon Dioxide 32 mmol/L (22-30) H 09/21/18 03:43 Anion Gap 18 mmol/L 09/21/18 03:43 BUN 7 mg/dL (9-20) L 09/21/18 03:43 Creatinine 0.4 mg/dL (0.8-1.5) L 09/21/18 03:43 Estimated GFR > 60 ml/min 09/21/18 03:43 BUN/Creatinine Ratio 18 % 09/21/18 03:43 Glucose 124 mg/dL (75-100) H 09/21/18 03:43 Calcium 9.3 mg/dL (8.4-10.2) 09/21/18 03:43 Troponin T < 0.010 ng/mL (0.00-0.029) 09/21/18 03:43
[2018-09-21] MEDS: DUONEB *Not for PRN Use IH SCH ×2 (13:42→19:58)
[2018-09-21] MEDS: SOLU-Medrol IV SCH ×2 (15:52→21:03)
[2018-09-21] MEDS: APRESOLINE PO SCH ×2 (15:54→21:07)
--- NOTE | 2018-09-21 15:59 | Consultation ---
HISTORY OF PRESENT ILLNESS: This is a 68-year-old male with a known history of end-stage COPD, on supplemental oxygen at home, with chronic respiratory failure who comes in with shortness of breath. The patient's usual state of health until approximately 2 weeks ago when he began having worsening in symptoms. He reports that he got progressively worse and was unable to walk back and forth to his bathroom and came into ER in distress. In the ER, he was noted to be in respiratory distress, noted to be hypoxic, hypercapnic and was placed on BiPAP and was admitted. Presently, the patient is on supplemental oxygen, feeling better, but still congested. PAST MEDICAL HISTORY: COPD. SOCIAL HISTORY: Lives at home and has a history of tobacco use. PAST MEDICAL HISTORY: Hypertension, COPD. REVIEW OF SYSTEMS: No hemoptysis, hematemesis. No diarrhea, no constipation, no dysuria, no hematuria, or polyuria. MEDICATIONS: List noted. FAMILY HISTORY: Positive for hypertension. PHYSICAL EXAMINATION: VITAL SIGNS: Blood pressure 170/90, 96, 24. GENERAL: male in mild distress, wearing supplemental oxygen. HEENT: Pupils reactive. Trachea midline. NECK: Supple. CARDIOVASCULAR: Normal S1, S2. LUNGS: Rhonchi positive expiratory wheezes. ABDOMEN: Positive bowel sounds, soft, nontender. EXTREMITIES: Failed to reveal cyanosis, clubbing or edema. NEUROLOGICAL: Alert, oriented x 3. Nonfocal. LABORATORY DATA: Chest x-ray which was done on admission, which shows no acute infiltrates or effusions. Chest x-ray shows no evidence of pulmonary emboli, 2.2 pleural based mass evidence of emphysema. IMPRESSION: This gentleman with acute on chronic respiratory failure, chronic obstructive pulmonary disease with exacerbation, acute bronchitis. A 2.2 cm pleural based mass. At this time, we will continue on BiPAP and continue supplemental oxygen. Continue nebulizer treatments of Brovana and budesonide. Will need close outpatient followup. Continue antibiotics as started. Monitor respiratory status closely. Of concern he has 2.2 cm pleural based mass in the right lung may need a biopsy. The patient also with evidence of T12, L1 and L3, and possible fracture. We will obtain x-ray of the back once more stable. Continue present status. Overall, prognosis is poor. JOB# [id number] BERNA/NTS
[2018-09-21] MEDS: MYLICON PO SCH ×2 (17:37→21:04)
[2018-09-21] MEDS: ROBITUSSIN PO PRN (21:04)
[2018-09-22] MEDS: DUONEB *Not for PRN Use IH SCH ×3 (01:36→17:11)
[2018-09-22 04:40] LABS: Basophils % (Auto) 0.1 % (0.0-1.8); Hematocrit 33.2 % (35.5-45.6); Hemoglobin 11.1 gm/dl (11.8-15.2); Lymphocytes # (Auto) 0.5 K/mm3 (1.2-5.4); Lymphocytes % (Auto) 5.9 % (13.4-35.0); Mean Corpuscular HGB Conc 34 % (32-34); Mean Corpuscular Volume 95 fl (84-94); Monocytes # (Auto) 0.3 K/mm3 (0.0-0.8); Platelet Count 183 K/mm3 (140-440); Red Blood Count 3.51 M/mm3 (3.65-5.03); Red Cell Distribution Width 15.4 % (13.2-15.2)
[2018-09-22 04:51] LABS: BUN/Creatinine Ratio 23; Blood Urea Nitrogen 16 mg/dL (9-20); Calcium 9.4 mg/dL (8.4-10.2); Hemolysis Index 3
[2018-09-22] MEDS: SOLU-Medrol IV SCH ×3 (05:01→21:11)
[2018-09-22] MEDS: ROBITUSSIN PO PRN ×2 (05:07→18:22)
[2018-09-22] MEDS: LEVAQUIN 750MG/150ML 750 MG/150 ML BAG IV SCH (09:09)
[2018-09-22] MEDS: CLARITIN PO SCH (09:11)
[2018-09-22] MEDS: TIOTROPIUM BROMIDE IH SCH (09:11)
[2018-09-22] MEDS: HEPARIN SUB-Q SCH ×2 (09:12→21:13)
[2018-09-22] MEDS: MYLICON PO SCH ×4 (09:12→21:12)
[2018-09-22] MEDS: SODIUM CHLORIDE FLUSH SYRINGE 10 ML IV SCH ×2 (09:13→21:12)
[2018-09-22] MEDS: APRESOLINE PO SCH ×3 (11:08→21:11)
[2018-09-22] MEDS: ZESTRIL PO SCH (11:09)
--- NOTE | 2018-09-22 12:52 | Progress Note ---
Assessment and Plan - Patient Problems (1) Acute and chronic respiratory failure ([id number]) Current Visit: Yes Status: Acute (2) Acute and chronic respiratory failure with hypoxia Current Visit: Yes Status: Acute (3) COPD (chronic obstructive pulmonary disease) Current Visit: Yes Status: Acute Qualifiers: COPD type: unspecified COPD Qualified Code(s): J44.9 - Chronic obstructive pulmonary disease, unspecified (4) COPD exacerbation Current Visit: Yes Status: Acute (5) Hypoxia Current Visit: Yes Status: Acute (6) Respiratory distress Current Visit: Yes Status: Acute (7) Shortness of breath Current Visit: Yes Status: Acute (8) Fever Current Visit: No Status: Acute (9) O2 dependent Current Visit: No Status: Acute (10) Lung mass Current Visit: Yes Status: Acute Subjective Interval history: feels better Objective Vital Signs - 12hr 09/22/18 09/22/18 09/22/18 01:00 01:10 01:20 Temperature Pulse Rate 101 H 105 H 100 H Pulse Rate [ Bilateral Throughout] Pulse Rate [ From Monitor] Respiratory 16 22 23 Rate Respiratory Rate [Bilateral Throughout] Blood Pressure 135/67 135/67 135/67 O2 Sat by Pulse 97 97 96 Oximetry 09/22/18 09/22/18 09/22/18 01:30 01:36 01:40 Temperature Pulse Rate 96 H 102 H Pulse Rate [ 101 H Bilateral Throughout] Pulse Rate [ From Monitor] Respiratory 17 21 Rate Respiratory 16 Rate [Bilateral Throughout] Blood Pressure 126/76 126/76 O2 Sat by Pulse 97 98 Oximetry 09/22/18 09/22/18 09/22/18 01:50 02:00 02:10 Temperature Pulse Rate 113 H 113 H 105 H Pulse Rate [ Bilateral Throughout] Pulse Rate [ From Monitor] Respiratory 22 21 22 Rate Respiratory Rate [Bilateral Throughout] Blood Pressure 126/76 118/94 118/94 O2 Sat by Pulse 95 97 98 Oximetry 09/22/18 09/22/18 09/22/18 02:20 02:30 02:40 Temperature Pulse Rate 110 H 95 H 111 H Pulse Rate [ Bilateral Throughout] Pulse Rate [ From Monitor] Respiratory 22 15 20 Rate Respiratory Rate [Bilateral Throughout] Blood Pressure 118/94 139/76 139/76 O2 Sat by Pulse 98 98 98 Oximetry 01/13/19 01/13/19 01/13/19 02:50 03:00 03:10 Temperature Pulse Rate 106 H 100 H 101 H Pulse Rate [ Bilateral Throughout] Pulse Rate [ From Monitor] Respiratory 20 20 20 Rate Respiratory Rate [Bilateral Throughout] Blood Pressure 139/76 130/69 130/69 O2 Sat by Pulse 95 98 96 Oximetry 09/22/18 09/22/18 09/22/18 03:20 03:30 03:40 Temperature Pulse Rate 96 H 101 H 111 H Pulse Rate [ Bilateral Throughout] Pulse Rate [ From Monitor] Respiratory 16 14 17 Rate Respiratory Rate [Bilateral Throughout] Blood Pressure 139/76 149/76 149/76 O2 Sat by Pulse 98 96 98 Oximetry 09/22/18 09/22/18 09/22/18 03:50 04:00 04:10 Temperature 98.4 F Pulse Rate 105 H 104 H 97 H Pulse Rate [ Bilateral Throughout] Pulse Rate [ 97 H From Monitor] Respiratory 19 15 29 H Rate Respiratory Rate [Bilateral Throughout] Blood Pressure 130/69 154/75 154/75 O2 Sat by Pulse 97 100 98 Oximetry 09/22/18 09/22/18 09/22/18 04:20 04:30 04:40 Temperature Pulse Rate 101 H 99 H 94 H Pulse Rate [ Bilateral Throughout] Pulse Rate [ From Monitor] Respiratory 12 15 14 Rate Respiratory Rate [Bilateral Throughout] Blood Pressure 154/75 154/75 175/93 O2 Sat by Pulse 99 99 99 Oximetry 09/22/18 09/22/18 09/22/18 04:50 05:00 05:10 Temperature Pulse Rate 91 H 105 H 110 H Pulse Rate [ Bilateral Throughout] Pulse Rate [ From Monitor] Respiratory 14 13 20 Rate Respiratory Rate [Bilateral Throughout] Blood Pressure 175/93 150/97 150/97 O2 Sat by Pulse 100 98 98 Oximetry 09/22/18 09/22/18 09/22/18 05:20 05:30 05:40 Temperature Pulse Rate 112 H 103 H 106 H Pulse Rate [ Bilateral Throughout] Pulse Rate [ From Monitor] Respiratory 24 19 21 Rate Respiratory Rate [Bilateral Throughout] Blood Pressure 150/97 97/37 97/37 O2 Sat by Pulse 98 98 98 Oximetry 09/22/18 09/22/18 09/22/18 05:50 06:00 06:10 Temperature Pulse Rate 100 H 117 H 99 H Pulse Rate [ Bilateral Throughout] Pulse Rate [ From Monitor] Respiratory 15 21 17 Rate Respiratory Rate [Bilateral Throughout] Blood Pressure 97/37 131/73 131/73 O2 Sat by Pulse 98 94 98 Oximetry 09/22/18 09/22/18 09/22/18 06:20 06:30 06:40 Temperature Pulse Rate 110 H 104 H 97 H Pulse Rate [ Bilateral Throughout] Pulse Rate [ From Monitor] Respiratory 22 20 15 Rate Respiratory Rate [Bilateral Throughout] Blood Pressure 131/73 115/62 115/62 O2 Sat by Pulse 98 97 98 Oximetry 09/22/18 09/22/18 09/22/18 06:50 07:00 07:10 Temperature Pulse Rate 95 H 94 H 92 H Pulse Rate [ Bilateral Throughout] Pulse Rate [ From Monitor] Respiratory 14 14 15 Rate Respiratory Rate [Bilateral Throughout] Blood Pressure 115/62 120/60 120/60 O2 Sat by Pulse 99 99 99 Oximetry 09/22/18 09/22/18 09/22/18 07:20 07:30 07:40 Temperature Pulse Rate 90 93 H 90 Pulse Rate [ Bilateral Throughout] Pulse Rate [ From Monitor] Respiratory 14 14 12 Rate Respiratory Rate [Bilateral Throughout] Blood Pressure 120/60 120/65 120/65 O2 Sat by Pulse 99 100 99 Oximetry 09/22/18 09/22/18 09/22/18 07:50 08:00 08:10 Temperature 98.2 F Pulse Rate 93 H 119 H 114 H Pulse Rate [ Bilateral Throughout] Pulse Rate [ 96 H From Monitor] Respiratory 13 23 20 Rate Respiratory Rate [Bilateral Throughout] Blood Pressure 120/65 120/65 121/70 O2 Sat by Pulse 100 97 97 Oximetry 09/22/18 09/22/18 09/22/18 08:20 08:30 08:40 Temperature Pulse Rate 115 H 118 H 104 H Pulse Rate [ Bilateral Throughout] Pulse Rate [ From Monitor] Respiratory 22 21 17 Rate Respiratory Rate [Bilateral Throughout] Blood Pressure 121/70 109/59 109/59 O2 Sat by Pulse 96 98 97 Oximetry 09/22/18 09/22/18 09/22/18 08:50 09:00 09:10 Temperature Pulse Rate 102 H 110 H 104 H Pulse Rate [ Bilateral Throughout] Pulse Rate [ From Monitor] Respiratory 16 20 19 Rate Respiratory Rate [Bilateral Throughout] Blood Pressure 109/59 99/49 99/49 O2 Sat by Pulse 96 97 98 Oximetry 09/22/18 09/22/18 09/22/18 09:20 09:30 09:40 Temperature Pulse Rate 107 H 99 H 98 H Pulse Rate [ Bilateral Throughout] Pulse Rate [ From Monitor] Respiratory 18 16 18 Rate Respiratory Rate [Bilateral Throughout] Blood Pressure 98/52 119/56 119/56 O2 Sat by Pulse 96 96 98 Oximetry 09/22/18 09/22/18 09/22/18 09:50 10:00 10:10 Temperature Pulse Rate 109 H 111 H 110 H Pulse Rate [ Bilateral Throughout] Pulse Rate [ From Monitor] Respiratory 24 16 23 Rate Respiratory Rate [Bilateral Throughout] Blood Pressure 106/52 118/59 118/59 O2 Sat by Pulse 98 97 98 Oximetry 09/22/18 09/22/18 09/22/18 10:20 10:30 10:40 Temperature Pulse Rate 113 H 106 H 109 H Pulse Rate [ Bilateral Throughout] Pulse Rate [ From Monitor] Respiratory 20 21 20 Rate Respiratory Rate [Bilateral Throughout] Blood Pressure 120/67 111/68 111/68 O2 Sat by Pulse 98 97 97 Oximetry 09/22/18 09/22/18 09/22/18 10:50 11:00 11:08 Temperature Pulse Rate 111 H 111 H 111 H Pulse Rate [ Bilateral Throughout] Pulse Rate [ From Monitor] Respiratory 21 16 Rate Respiratory Rate [Bilateral Throughout] Blood Pressure 108/65 120/69 99/49 O2 Sat by Pulse 98 96 Oximetry 09/22/18 09/22/18 09/22/18 11:09 11:10 11:56 Temperature 98.0 F Pulse Rate 111 H 114 H Pulse Rate [ Bilateral Throughout] Pulse Rate [ From Monitor] Respiratory 27 H Rate Respiratory Rate [Bilateral Throughout] Blood Pressure 99/49 120/69 O2 Sat by Pulse 98 Oximetry Constitutional: no acute distress Eyes: non-icteric ENT: oropharynx moist Neck: supple Ascultation: Bilateral: rhonchi (rare) Cardiovascular: regular rate and rhythm Gastrointestinal: normoactive bowel sounds, soft Integumentary: normal Neurologic: normal mental status Psychiatric: mood appropriate CBC and BMP: 09/22/18 03:44 09/22/18 03:44 Abnormal lab findings: Abnormal Labs 09/21/18 09/21/18 09/22/18 03:43 03:43 03:44 RBC 3.51 L Hgb 11.6 L 11.1 L Hct 35.1 L 33.2 L MCV 96 H 95 H RDW 15.6 H 15.4 H Lymph % (Auto) 7.5 L 5.9 L [place] % (Auto) 10.4 H Lymph # 0.6 L 0.5 L [place] # 0.9 H Seg Neutrophils % 80.4 H 90.0 H Sodium 135 L Chloride 89.8 L Carbon Dioxide 32 H BUN 7 L Creatinine 0.4 L Glucose 124 H 09/22/18 03:44 RBC Hgb Hct MCV RDW Lymph % (Auto) [place] % (Auto) Lymph # [place] # Seg Neutrophils % Sodium 135 L Chloride 90.6 L Carbon Dioxide 32 H BUN Creatinine 0.7 L D Glucose 182 H
[2018-09-22] MEDS: BROVANA NEBU IH SCH ×2 (12:57→20:23)
[2018-09-22] MEDS: PULMICORT IH SCH ×2 (12:57→20:23)
--- NOTE | 2018-09-22 15:10 | Progress Note ---
Assessment and Plan Assessment and plan: Patient is a 68-year-old male with a past medical history of COPD/emphysema with oxygen dependence, hypertension, asthma, hepatitis C, anxiety, and emphysema presents to the Hospital complaining of shortness of breath, cough and wheezing which has since gotten worse from his baseline. The patient reports he was in his normal usual state of health with baseline shortness of breath since las admission when he noticed worsening exertinal dyspnea in the last 3 days, this was preceeded a day earlier with cough but was none productive. He activate the EMS system and despite magensium, solumedrol and NEB there was not improvement prompting presentation to the ED. In the ED the patient was palced on a BIPAP, was also noted to have elevated BP which the patient states he has had for some time as the pharmacy lost his medication and he has not been able to follow with his doctors [facility] the [facility] He denies any fever, nausea, vomiting, chest pain. CTA chest IMPRESSION: There is no pulmonary embolism. There is calcified atherosclerosis in the thoracic aorta. There is no aneurysm or dissection.. Th ere is a 2.2 centimeter pleural base mass in the right lower lung similar to prior study. Malignancy cannot be excluded. There is advanced COPD. There are no infiltrates.. There are fracture deformities of T12, L1 and L3 which were not present on the prior study. Acute fractures are not excluded. Acute on Chronic Respiratory failure with hypoxia SIRS secondary to Non infectious etiology COPD exacerbation Hypertensive urgency Hyponatremia HTN ANEMIA T12,L1,L3 Fractures, ?acute or subacute- not present in prior study, ?pathologic -per patient this is chronic, he is aware. Still I recommend in light of pleural base mass. Patient should have Hemo eval outpatient -Denies any recent fall Pleural base mass on right lower lung, similar to prior study. Malignancy not excluded. since 2017 Plan: Continue supportive care Discussed with Passenger Brakeman and patient also notified, We recommned biopsy of lung mass once he is clinically stable. Patient and significant other verbalized understanding. Bp control NEBS, LABA, JONATHAN, IV STEROIDS Emperic abx with Levaquin PULMONARY INPUT NOTED Follows at the [facility] Patient reports Flu shot compliance this year Reports has not taken BP meds due to pharmacy losing his medication Fall precautions Am Labs PO intake DVT/GI prophy CCT 75mins History Interval history: Patient admitted with shortness of breath, still present but improving some. Hospitalist Physical - Physical exam Narrative exam: VITAL SIGNS: Reviewed. GENERAL: The patient appeared chronically ill appearing, and with dyspnea. Vital signs as documented. HEAD: No signs of head trauma. EYES: Pupils are equal. Extraocular motions intact. EARS: Hearing grossly intact. MOUTH: Oropharynx is normal. NECK: No adenopathy, no JVD. CHEST: Chest with Diminshed breath sounds bilaterally. some exp wheezes, No rales, or rhonchi. CARDIAC: tachycardia rate and rhythm. S1 and S2, without murmurs, gallops, or rubs. VASCULAR: No Edema. Peripheral pulses normal and equal in all extremities. ABDOMEN: Soft, without detectable tenderness. No sign of distention. No rebound or guarding, and no masses palpated. Bowel Sounds normal. MUSCULOSKELETAL: Good range of motion of all major joints. Extremities without clubbing, cyanosis or edema. NEUROLOGIC EXAM: Alert and oriented x 3. No focal sensory or strength deficits. Speech normal. Follows commands. PSYCHIATRIC: Mood anxious SKIN: age appropriate wrinkles and blemish - Constitutional Vitals: Temp Pulse Resp BP Pulse Ox 98.0 F 112 H 19 135/68 98 09/22/18 11:56 09/22/18 14:10 09/22/18 14:10 09/22/18 14:10 09/22/18 14:10 Results - Labs CBC & Chem 7: 09/22/18 03:44 09/22/18 03:44 Labs: Laboratory Last Values WBC 8.1 K/mm3 (4.5-11.0) 09/22/18 03:44 RBC 3.51 M/mm3 (3.65-5.03) L 09/22/18 03:44 Hgb 11.1 gm/dl (11.8-15.2) L 09/22/18 03:44 Hct 33.2 % (35.5-45.6) L 09/22/18 03:44 MCV 95 fl (84-94) H 09/22/18 03:44 MCH 32 pg (28-32) 09/22/18 03:44 MCHC 34 % (32-34) 09/22/18 03:44 RDW 15.4 % (13.2-15.2) H 09/22/18 03:44 Plt Count 183 K/mm3 (140-440) 09/22/18 03:44 Lymph % (Auto) 5.9 % (13.4-35.0) L 09/22/18 03:44 [place] % (Auto) 4.0 % (0.0-7.3) 09/22/18 03:44 Eos % (Auto) 0.0 % (0.0-4.3) 09/22/18 03:44 Baso % (Auto) 0.1 % (0.0-1.8) 09/22/18 03:44 Lymph # 0.5 K/mm3 (1.2-5.4) L 09/22/18 03:44 [place] # 0.3 K/mm3 (0.0-0.8) 09/22/18 03:44 Eos # 0.0 K/mm3 (0.0-0.4) 09/22/18 03:44 Baso # 0.0 K/mm3 (0.0-0.1) 09/22/18 03:44 Seg Neutrophils % 90.0 % (40.0-70.0) H 09/22/18 03:44 Seg Neutrophils # 7.3 K/mm3 (1.8-7.7) 09/22/18 03:44 Sodium 135 mmol/L (137-145) L 09/22/18 03:44 Potassium 3.9 mmol/L (3.6-5.0) 09/22/18 03:44 Chloride 90.6 mmol/L (98-107) L 09/22/18 03:44 Carbon Dioxide 32 mmol/L (22-30) H 09/22/18 03:44 Anion Gap 16 mmol/L 09/22/18 03:44 BUN 16 mg/dL (9-20) 09/22/18 03:44 Creatinine 0.7 mg/dL (0.8-1.5) L D 09/22/18 03:44 Estimated GFR > 60 ml/min 09/22/18 03:44 BUN/Creatinine Ratio 23 % 09/22/18 03:44 Glucose 182 mg/dL (75-100) H 09/22/18 03:44 Calcium 9.4 mg/dL (8.4-10.2) 09/22/18 03:44 Troponin T < 0.010 ng/mL (0.00-0.029) 09/21/18 03:43 Nutrition/Malnutrition Assess - Dietary Evaluation Nutrition/Malnutrition Findings: Nutrition Notes Start: 09/21/18 15:34 Freq: Status: Active Protocol: Document 09/21/18 15:34 OL (Rec: 09/21/18 15:39 OL [id number]) Nutrition Notes Initial or Follow up Assessment Current Diagnosis COPD Current Diet cardiac Labs/Tests Reviewed Pertinent Medications Solu-medrol Height 5 ft 11 in Weight 63.503 kg [place] Body Weight (lbs) 172.0 BMI 19.5 Weight Status Underweight Subjective/Other Information RD consult for malnutrition. Pt. reports poor appetite 2/2 weakness. 50% lunch consumed at time of visit. Pt. does not look Ensure/Boost but is willing to try Ensure clear. Pt. monitoring sodium intake at home. Pt. reports he usually has good appetite, denies N/V/C/D. Burn Absent Trauma Absent GI Symptoms None #1 Nutrition Diagnosis Inadequate oral intake Etiology weakness As Evidenced by Signs and Symptoms pt. consuming 50% of meals Is patient on ventilator? No Is Patient Ambulatory and/or Out of Bed No REE-([facility]-confined to bed) 1730.160 Additional Notes protein (1.2-1.5g/kg): 76-95g fluid: 1mL/kcal or per MD Nutrition Intervention Change Diet Order: Continue cardiac Add Supplement/Snack (indicate name/kcal Ensure clear daily /protein ) Provides kCal: 240 Provides Protein (gm) 8 Goal #1 PO + ONS intake to meet 75-100 % nutrient needs Anticipated Discharge Needs: Cardiac Follow-Up By: 09/24/18 Additional Comments f/u: intakes
[2018-09-22] MEDS: PROVENTIL IH SCH (20:24)
[2018-09-23] MEDS: AMBIEN PO PRN ×2 (01:23→23:44)
[2018-09-23] MEDS: PROVENTIL IH SCH ×4 (02:33→20:33)
[2018-09-23] MEDS: SOLU-Medrol IV SCH ×3 (05:16→23:43)
[2018-09-23] MEDS: BROVANA NEBU IH SCH ×2 (08:22→20:33)
[2018-09-23] MEDS: TIOTROPIUM BROMIDE IH SCH (08:39)
[2018-09-23] MEDS: HEPARIN SUB-Q SCH ×2 (09:10→22:55)
[2018-09-23] MEDS: CLARITIN PO SCH (09:10)
[2018-09-23] MEDS: LEVAQUIN 750MG/150ML 750 MG/150 ML BAG IV SCH (09:10)
[2018-09-23] MEDS: APRESOLINE PO SCH ×3 (09:11→21:45)
[2018-09-23] MEDS: MYLICON PO SCH ×4 (09:12→22:55)
[2018-09-23] MEDS: ZESTRIL PO SCH (09:12)
[2018-09-23] MEDS: SODIUM CHLORIDE FLUSH SYRINGE 10 ML IV SCH ×2 (09:12→22:55)
[2018-09-23] MEDS: PULMICORT IH SCH ×2 (09:35→20:33)
--- NOTE | 2018-09-23 12:42 | Progress Note ---
Assessment and Plan 68 y/o male with right lower lobe pleural based lesion. 1. Patient did not have cat scan in July 2. spoke with IMS who will order CT guided biopsy Subjective Date of service: 09/23/18 Interval history: No acute events. TAchy on monitor. Sitting up on side of bed. Objective Vital Signs - 12hr 09/23/18 09/23/18 09/23/18 01:00 02:00 03:00 Temperature 98.1 F Pulse Rate 110 H 108 H 115 H Pulse Rate [ Bilateral Throughout] Pulse Rate [ From Monitor] Respiratory 18 14 19 Rate Respiratory Rate [Bilateral Throughout] Blood Pressure 114/48 112/53 117/49 O2 Sat by Pulse 97 98 98 Oximetry 09/23/18 09/23/18 09/23/18 04:00 05:00 06:00 Temperature Pulse Rate 106 H 99 H 105 H Pulse Rate [ Bilateral Throughout] Pulse Rate [ 99 H From Monitor] Respiratory 16 15 19 Rate Respiratory Rate [Bilateral Throughout] Blood Pressure 119/60 106/61 122/61 O2 Sat by Pulse 93 98 95 Oximetry 09/23/18 09/23/18 09/23/18 07:00 08:00 08:45 Temperature 98.6 F Pulse Rate 95 H 115 H Pulse Rate [ 117 H Bilateral Throughout] Pulse Rate [ 121 H From Monitor] Respiratory 23 22 Rate Respiratory 18 Rate [Bilateral Throughout] Blood Pressure 131/57 131/57 O2 Sat by Pulse 98 93 Oximetry 09/23/18 09/23/18 09/23/18 09:00 09:02 09:03 Temperature Pulse Rate 114 H Pulse Rate [ 118 H Bilateral Throughout] Pulse Rate [ From Monitor] Respiratory 25 H Rate Respiratory 18 Rate [Bilateral Throughout] Blood Pressure 109/48 O2 Sat by Pulse 95 96 Oximetry 09/23/18 09/23/18 09/23/18 09:11 09:12 10:00 Temperature Pulse Rate 103 H 108 H 118 H Pulse Rate [ Bilateral Throughout] Pulse Rate [ From Monitor] Respiratory 15 Rate Respiratory Rate [Bilateral Throughout] Blood Pressure 109/48 109/48 131/57 O2 Sat by Pulse 99 Oximetry 09/23/18 09/23/18 11:00 12:00 Temperature 98.4 F Pulse Rate 111 H 106 H Pulse Rate [ Bilateral Throughout] Pulse Rate [ 114 H From Monitor] Respiratory 20 19 Rate Respiratory Rate [Bilateral Throughout] Blood Pressure 126/54 123/53 O2 Sat by Pulse 96 97 Oximetry Constitutional: no acute distress Eyes: non-icteric ENT: oropharynx moist Neck: supple Ascultation: Bilateral: rhonchi (rare) Cardiovascular: regular rate and rhythm Gastrointestinal: normoactive bowel sounds, soft Integumentary: normal Neurologic: normal mental status Psychiatric: mood appropriate CBC and BMP: 09/22/18 03:44 09/22/18 03:44 Abnormal lab findings: Abnormal Labs 09/21/18 09/21/18 09/22/18 03:43 03:43 03:44 RBC 3.51 L Hgb 11.6 L 11.1 L Hct 35.1 L 33.2 L MCV 96 H 95 H RDW 15.6 H 15.4 H Lymph % (Auto) 7.5 L 5.9 L [place] % (Auto) 10.4 H Lymph # 0.6 L 0.5 L [place] # 0.9 H Seg Neutrophils % 80.4 H 90.0 H Sodium 135 L Chloride 89.8 L Carbon Dioxide 32 H BUN 7 L Creatinine 0.4 L Glucose 124 H 09/22/18 03:44 RBC Hgb Hct MCV RDW Lymph % (Auto) [place] % (Auto) Lymph # [place] # Seg Neutrophils % Sodium 135 L Chloride 90.6 L Carbon Dioxide 32 H BUN Creatinine 0.7 L D Glucose 182 H
--- NOTE | 2018-09-23 17:57 | Progress Note ---
Assessment and Plan Assessment and plan: Patient is a 68-year-old male with a past medical history of COPD/emphysema with oxygen dependence, hypertension, asthma, hepatitis C, anxiety, and emphysema presents to the Hospital complaining of shortness of breath, cough and wheezing which has since gotten worse from his baseline. The patient reports he was in his normal usual state of health with baseline shortness of breath since las admission when he noticed worsening exertinal dyspnea in the last 3 days, this was preceeded a day earlier with cough but was none productive. He activate the EMS system and despite magensium, solumedrol and NEB there was not improvement prompting presentation to the ED. In the ED the patient was palced on a BIPAP, was also noted to have elevated BP which the patient states he has had for some time as the pharmacy lost his medication and he has not been able to follow with his doctors at the [facility] He denies any fever, nausea, vomiting, chest pain. CTA chest IMPRESSION: There is no pulmonary embolism. There is calcified atherosclerosis in the thoracic aorta. There is no aneurysm or dissection.. There is a 2.2 centimeter pleural base mass in the right lower lung similar to prior study. Malignancy cannot be excluded. There is advanced COPD. There are no infiltrates.. There are fracture deformities of T12, L1 and L3 which were not present on the prior study. Acute fractures are not excluded. Acute on Chronic Respiratory failure with hypoxia SIRS secondary to Non infectious etiology COPD exacerbation Decompensated condition Hypertensive urgency Hyponatremia HTN ANEMIA T12,L1,L3 Fractures, ?acute or subacute- not present in prior study, ?pathologic -per patient this is chronic, he is aware. Still I recommend in light of pleural base mass. Patient should have Hemo eval outpatient -Denies any recent fall Pleural base mass on right lower lung, similar to prior study. Malignancy not excluded. since 2017 Plan: Continue supportive care Obtain CT guided biopsy Discussed with Channel Business Manager and patient also notified, Patient and significant other verbalized understanding. Bp control NEBS, LABA, JONATHAN, IV STEROIDS Empiric abx with Levaquin PULMONARY INPUT NOTED [facility] Patient reports Flu shot compliance this year Reports has not taken BP meds due to pharmacy losing his medication Fall precautions Am Labs PO intake DVT/GI prophy The high probability of a clinically significant, sudden or life threatening deterioration of the [pulmonary] system(s) required my full and direct attention, intervention and personal management. The aggregate critical care time was [35] minutes. This time is in addition to time spent performing reported procedures but includes the following: [x] Data Review and interpretation [x] Patient assessment and monitoring of vital signs [x] Documentation [x] Medication orders and management History Interval history: Patient admitted with shortness of breath, still present but improving some but still with tachycardia which may be baseline. Hospitalist Physical - Physical exam Narrative exam: VITAL SIGNS: Reviewed. GENERAL: The patient appeared chronically ill appearing, and with dyspnea. Vit al signs as documented. HEAD: No signs of head trauma. EYES: Pupils are equal. Extraocular motions intact. EARS: Hearing grossly intact. MOUTH: Oropharynx is normal. NECK: No adenopathy, no JVD. CHEST: Chest with Diminshed breath sounds bilaterally. some exp wheezes, No rales, or rhonchi. CARDIAC: tachycardia rate and rhythm. S1 and S2, without murmurs, gallops, or rubs. VASCULAR: No Edema. Peripheral pulses normal and equal in all extremities. ABDOMEN: Soft, without detectable tenderness. No sign of distention. No rebound or guarding, and no masses palpated. Bowel Sounds normal. MUSCULOSKELETAL: Good range of motion of all major joints. Extremities without clubbing, cyanosis or edema. NEUROLOGIC EXAM: Alert and oriented x 3. No focal sensory or strength deficits. Speech normal. Follows commands. PSYCHIATRIC: Mood anxious SKIN: age appropriate wrinkles and blemish - Constitutional Vitals: Temp Pulse Resp BP Pulse Ox 98.4 F 112 H 21 125/65 96 09/23/18 15:00 09/23/18 15:00 09/23/18 15:00 09/23/18 15:00 09/23/18 15:00 Results - Labs CBC & Chem 7: 09/22/18 03:44 09/22/18 03:44 Labs: Laboratory Last Values WBC 8.1 K/mm3 (4.5-11.0) 09/22/18 03:44 RBC 3.51 M/mm3 (3.65-5.03) L 09/22/18 03:44 Hgb 11.1 gm/dl (11.8-15.2) L 09/22/18 03:44 Hct 33.2 % (35.5-45.6) L 09/22/18 03:44 MCV 95 fl (84-94) H 09/22/18 03:44 MCH 32 pg (28-32) 09/22/18 03:44 MCHC 34 % (32-34) 09/22/18 03:44 RDW 15.4 % (13.2-15.2) H 09/22/18 03:44 Plt Count 183 K/mm3 (140-440) 09/22/18 03:44 Lymph % (Auto) 5.9 % (13.4-35.0) L 09/22/18 03:44 [place] % (Auto) 4.0 % (0.0-7.3) 09/22/18 03:44 Eos % (Auto) 0.0 % (0.0-4.3) 09/22/18 03:44 Baso % (Auto) 0.1 % (0.0-1.8) 09/22/18 03:44 Lymph # 0.5 K/mm3 (1.2-5.4) L 09/22/18 03:44 [place] # 0.3 K/mm3 (0.0-0.8) 09/22/18 03:44 Eos # 0.0 K/mm3 (0.0-0.4) 09/22/18 03:44 Baso # 0.0 K/mm3 (0.0-0.1) 09/22/18 03:44 Seg Neutrophils % 90.0 % (40.0-70.0) H 09/22/18 03:44 Seg Neutrophils # 7.3 K/mm3 (1.8-7.7) 09/22/18 03:44 Sodium 135 mmol/L (137-145) L 09/22/18 03:44 Potassium 3.9 mmol/L (3.6-5.0) 09/22/18 03:44 Chloride 90.6 mmol/L (98-107) L 09/22/18 03:44 Carbon Dioxide 32 mmol/L (22-30) H 09/22/18 03:44 Anion Gap 16 mmol/L 09/22/18 03:44 BUN 16 mg/dL (9-20) 09/22/18 03:44 Creatinine 0.7 mg/dL (0.8-1.5) L D 09/22/18 03:44 Estimated GFR > 60 ml/min 09/22/18 03:44 BUN/Creatinine Ratio 23 % 09/22/18 03:44 Glucose 182 mg/dL (75-100) H 09/22/18 03:44 Calcium 9.4 mg/dL (8.4-10.2) 09/22/18 03:44 Troponin T < 0.010 ng/mL (0.00-0.029) 09/21/18 03:43 Nutrition/Malnutrition Assess - Dietary Evaluation Nutrition/Malnutrition Findings: Nutrition Notes Start: 09/21/18 15:34 Freq: Status: Active Protocol: Document 09/21/18 15:34 OL (Rec: 09/21/18 15:39 OL [id number]) Nutrition Notes Initial or Follow up Assessment Current Diagnosis COPD Current Diet cardiac Labs/Tests Reviewed Pertinent Medications Solu-medrol Height 5 ft 11 in Weight 63.503 kg [place] Body Weight (lbs) 172.0 BMI 19.5 Weight Status Underweight Subjective/Other Information RD consult for malnutrition. Pt. reports poor appetite 2/2 weakness. 50% lunch consumed at time of visit. Pt. does not look Ensure/Boost but is willing to try Ensure clear. Pt. monitoring sodium intake at home. Pt. reports he usually has good appetite, denies N/V/C/D. Burn Absent Trauma Absent GI Symptoms None #1 Nutrition Diagnosis Inadequate oral intake Etiology weakness As Evidenced by Signs and Symptoms pt. consuming 50% of meals Is patient on ventilator? No Is Patient Ambulatory and/or Out of Bed No REE-([facility]-confined to bed) 1730.160 Additional Notes protein (1.2-1.5g/kg): 76-95g fluid: 1mL/kcal or per MD Nutrition Intervention Change Diet Order: Continue cardiac Add Supplement/Snack (indicate name/kcal Ensure clear daily /protein ) Provides kCal: 240 Provides Protein (gm) 8 Goal #1 PO + ONS intake to meet 75-100 % nutrient needs Anticipated Discharge Needs: Cardiac Follow-Up By: 09/24/18 Additional Comments f/u: intakes
[2018-09-24] MEDS: PROVENTIL IH SCH ×3 (01:36→15:16)
[2018-09-24] MEDS: PULMICORT IH SCH (08:13)
[2018-09-24] MEDS: BROVANA NEBU IH SCH (08:14)
--- NOTE | 2018-09-24 09:23 | Progress Note ---
Assessment and Plan 68 y/o male with right lower lobe pleural based lesion. 1. Patient did not have cat scan in July 2. CT guided biopsy pending 3. All others per primary team Subjective Date of service: 09/24/18 Interval history: Transitioned to floor. Currently NPO, awaiting biopsy. Objective Vital Signs - 12hr 09/23/18 09/23/18 09/23/18 21:45 22:00 23:27 Temperature 98.2 F Pulse Rate 105 H 107 H 109 H Pulse Rate [ Bilateral Throughout] Pulse Rate [ Bilateral] Respiratory 18 Rate Respiratory Rate [Bilateral Throughout] Respiratory Rate [Bilateral ] Blood Pressure 131/66 135/67 O2 Sat by Pulse 97 Oximetry 09/24/18 09/24/18 09/24/18 01:36 01:46 03:44 Temperature 98.5 F Pulse Rate 111 H Pulse Rate [ 110 H 111 H Bilateral Throughout] Pulse Rate [ Bilateral] Respiratory 18 Rate Respiratory 18 18 Rate [Bilateral Throughout] Respiratory Rate [Bilateral ] Blood Pressure 134/54 O2 Sat by Pulse 97 Oximetry 09/24/18 09/24/18 09/24/18 08:04 08:17 08:22 Temperature 98.0 F Pulse Rate 101 H Pulse Rate [ 94 H Bilateral Throughout] Pulse Rate [ 100 H Bilateral] Respiratory 18 Rate Respiratory 18 Rate [Bilateral Throughout] Respiratory 20 Rate [Bilateral ] Blood Pressure 133/70 O2 Sat by Pulse 97 98 Oximetry Constitutional: no acute distress Eyes: non-icteric ENT: oropharynx moist Neck: supple Ascultation: Bilateral: rhonchi (rare) Cardiovascular: regular rate and rhythm Gastrointestinal: normoactive bowel sounds, soft Integumentary: normal Neurologic: normal mental status Psychiatric: mood appropriate CBC and BMP: 09/22/18 03:44 09/22/18 03:44 Abnormal lab findings: Abnormal Labs 09/21/18 09/21/18 09/22/18 03:43 03:43 03:44 RBC 3.51 L Hgb 11.6 L 11.1 L Hct 35.1 L 33.2 L MCV 96 H 95 H RDW 15.6 H 15.4 H Lymph % (Auto) 7.5 L 5.9 L [place] % (Auto) 10.4 H Lymph # 0.6 L 0.5 L [place] # 0.9 H Seg Neutrophils % 80.4 H 90.0 H Sodium 135 L Chloride 89.8 L Carbon Dioxide 32 H BUN 7 L Creatinine 0.4 L Glucose 124 H 09/22/18 03:44 RBC Hgb Hct MCV RDW Lymph % (Auto) [place] % (Auto) Lymph # [place] # Seg Neutrophils % Sodium 135 L Chloride 90.6 L Carbon Dioxide 32 H BUN Creatinine 0.7 L D Glucose 182 H
[2018-09-24] MEDS: MYLICON PO SCH ×2 (10:05→14:55)
[2018-09-24] MEDS: CLARITIN PO SCH (10:05)
[2018-09-24] MEDS: ZESTRIL PO SCH (10:06)
[2018-09-24] MEDS: HEPARIN SUB-Q SCH (10:06)
[2018-09-24] MEDS: LEVAQUIN 750MG/150ML 750 MG/150 ML BAG IV SCH (10:07)
[2018-09-24] MEDS: SODIUM CHLORIDE FLUSH SYRINGE 10 ML IV SCH (10:07)
[2018-09-24] MEDS: TIOTROPIUM BROMIDE IH SCH (10:08)
[2018-09-24] MEDS: APRESOLINE PO SCH ×2 (10:12→14:55)
--- NOTE | 2018-09-24 12:01 | Discharge Summary ---
Providers - Providers Date of Admission: 09/21/18 08:03 Attending physician: SANDRITA COON MD 09/21/18 08:04 Consult to Dietitian/Nutrition [CONS] Routine Physician Instructions: Reason For Exam: Reason for Consult: Malnutrition 09/21/18 08:07 Consult to Physician [CONS] Routine Comment: A/S NOTIFIED WAYLON NOTIFIED Consulting Provider: JOSE M AN Physician Instructions: Reason For Exam: COPD EXACERBATION Primary care physician: SHOE STICKS REPAIRER Hospitalization Reason for admission: copd exacerbation, lung mass Condition: Stable Pertinent studies: CTA IMPRESSION: There is no pulmonary embolism. There is calcified atherosclerosis in the thoracic aorta. There is no aneurysm or dissection.. There is a 2.2 centimeter pleural base mass in the right lower lung similar to prior study. Malignancy cannot be excluded. There is advanced COPD. There are no infiltrates.. There are fracture deformities of T12, L1 and L3 which were not present on the prior study. Acute fractures are not excluded. Hospital course: Patient is a 68-year-old male with a past medical history of COPD/emphysema with oxygen dependence, hypertension, asthma, hepatitis C, anxiety, and emphysema presents to the Hospital complaining of shortness of breath, cough and wheezing which has since gotten worse from his baseline. The patient reports he was in his normal usual state of health with baseline shortness of breath since last admission when he noticed worsening exertinal dyspnea in the last 3 days, this was preceeded a day earlier with cough but was non productive. He activate the EMS system and despite magensium, solumedrol and NEB there was not improvement prompting presentation to the ED. In the ED the patient was palced on a BIPAP, was also noted to have elevated BP which the patient states he has had for some time as the pharmacy lost his medication and he has not [facility] He denies any fever, nausea, vomiting, chest pain. CTA chest IMPRESSION: There is no pulmonary embolism. There is calcified atherosclerosis in the thoracic aorta. There is no aneurysm or dissection.. There is a 2.2 centimeter pleural base mass in the right lower lung similar to prior study. Malignancy cannot be excluded. There is advanced COPD. There are no infiltrates.. There are fracture deformities of T12, L1 and L3 which were not present on the prior study. Acute fractures are not excluded. Acute on Chronic Respiratory failure with hypoxia; patient was treated with BIPAP as needed, nebulizer and treat the underlying conditions. SIRS secondary to Non infectious etiology; resolved COPD exacerbation; treated according to the protocol and showed improvement. Hypertensive urgency; resume his medications and controlled Hyponatremia; resolved with IVF. ANEMIA; stable T12,L1,L3 Fractures, ?acute or subacute- not present in prior study, ?pathologic -per patient this is chronic, he is aware. Patient advised to have Hemo eval outpatient Pleural base mass on right lower lung, similar to prior study. Malignancy not excluded. since 2017. IR was consulted and said the mass is inaccessible to biopsy. Given no change in the size of the mass and the radiologic feature doesn't suggest malignancy patient need CT evaluation in 6 months and I have discussed with the patient and he understood the plan. Patient was hemodynamically stable at the time of discharge and appropriate medication scripts were given at the time of discharge. IR couldn' t access the CT guided biopsy. No change in the size and recommend to follow with repeat CT. Discussed with the patient. Disposition: DC-01 TO HOME OR SELFCARE Time spent for discharge: 32 minutes - Discharge Diagnoses (1) Acute and chronic respiratory failure ([id number]) Status: Acute (2) COPD exacerbation Status: Acute (3) Lung mass Status: Acute Core Measure Documentation - Palliative Care Palliative Care/ Comfort Measures: Not Applicable - Core Measures Any of the following diagnoses?: none Exam - Physical Exam Narrative exam: Not in cardiopulmonary distress. The patient appeared well nourished and normally developed. Vital signs as documented. Head exam is unremarkable. No scleral icterus . Neck is without jugular venous distension, thyromegaly, or carotid bruits. Lungs are clear to auscultation. Cardiac exam reveals regular rate and Rhythm. First and second heart sounds normal. No murmurs, rubs or gallops. Abdominal exam reveals normal bowel sounds, no masses, no organomegaly and no aortic enlargement. Extremities are nonedematous and both femoral and pedal pulses are normal. TRANSMISSION INSPECTOR: Alert and oriented 3. No focal weakness. - Constitutional Vitals: Temp Pulse Resp BP Pulse Ox 98.0 F 94 H 18 133/70 98 09/24/18 08:04 09/24/18 08:17 09/24/18 08:17 09/24/18 08:04 09/24/18 08:22 Plan Activity: no restrictions Weight Bearing Status: Full Weight Bearing Diet: regular Additional Instructions: Follow up at [facility] if no established PCP. Follow up with: PRIMARY CARE,MD [Primary Care Provider] - 3-5 Days Prescriptions: levoFLOXacin [Levaquin TAB] 500 mg PO QDAY #5 tablet Prednisone [predniSONE 10 mg (6-Day Pack, 21 Tabs)] 10 mg PO .TAPER #1 tab.ds.pk
[2018-09-24 12:12] VITALS: BP 106/43
[2018-09-24] MEDS: SOLU-Medrol IV SCH (14:55)
[2018-09-25] MEDS ORDERED: LEVAQUIN PO SCH (10:00)
== END 2018-09-24 18:00 | disposition home or self-care (01) | DRG 189 ==
LOC: ED 02:23 → IMCU 08:03 → 4A 09-23 17:02
PROVIDERS: ADMIT Internal Medicine; ATTEND Internal Medicine
PROC: 5A09357 Assistance with Respiratory Ventilation, Less than 24 Consecutive Hours, Continuous Positive Airway Pressure (ICD-10-PCS; principal; 2018-09-21)
DX: J96.21 Acute and chronic respiratory failure with hypoxia (principal); R65.10 Systemic inflammatory response syndrome (SIRS) of non-infectious origin without acute organ dysfunction; E87.1 Hypo-osmolality and hyponatremia; J44.1 Chronic obstructive pulmonary disease with (acute) exacerbation; J44.0 Chronic obstructive pulmonary disease with (acute) lower respiratory infection; I16.0 Hypertensive urgency; D64.9 Anemia, unspecified; J20.9 Acute bronchitis, unspecified; R91.8 Other nonspecific abnormal finding of lung field; I10 Essential (primary) hypertension; J45.909 Unspecified asthma, uncomplicated; F41.9 Anxiety disorder, unspecified; Z99.81 Dependence on supplemental oxygen; Z88.0 Allergy status to penicillin; Z79.51 Long term (current) use of inhaled steroids; Z82.49 Family history of ischemic heart disease and other diseases of the circulatory system
CPT/HCPCS: 36415; 71045; 71275; 80048; 84484; 85025; 93005; 93010; 94640; 94760; 99292; G0378; J0360; J1644; J1956; J2930; Q9967